=== PATIENT | male | born 1965 | race Caucasian/White ===

== ENCOUNTER 2016-09-25 11:43 | Inpatient (IN) | payer OTHER ==
[2016-09-25 11:59] VITALS: BMI 23.5
--- NOTE | 2016-09-25 16:33 | HP ---
COWS - Scale Resting Pulse: 0= [place] 80 or Below Sweatin= Chills/Flushing Restless Observation: 1= Difficult to Sit Still Pupil Size: 0= Normal to Room Light Bone or Joint Aches: 2= Severe Diffuse Aches Runny Nose/ Eye Tearin= Runny Nose/Eyes GI Upset > 30mins: 2= Nausea/Diarrhea Tremor Observation: 2= Slight Tremor Visible Yawning Observation: 2= >3x During Session Anxiety or Irritability: 2=Irritable/Anxious Goose Flesh Skin: 0=Smooth Skin COWS Score: [address] [facility] Chief Complaint: withdrawal sx Allergies/Adverse Reactions: Allergies Allergy/AdvReac Type Severity Reaction Status Date / Time No Known Allergies Allergy Verified 09/25/16 17:26 History of Present Illness: 51 years old male with long history of opiate cocaine marijuana nicotine dependence, has history of hypertension positive ppd weight loss denies mental illness is admitted to detox Exam Limitations: No Limitations - Ebola screening Have you traveled outside of the country in the last 21 days: No Have you had contact with anyone from an Ebola affected area: No Have you been sick,other than usual withdrawal symptoms: No Do you have a fever: No - Review of Systems Constitutional: Chills, Loss of Appetite, Changes in sleep, Unintentional Wgt. Loss, Unexplained wgt Loss EENT: reports: No Symptoms Reported Respiratory: reports: No Symptoms reported Cardiac: reports: No Symptoms Reported GI: reports: Diarrhea, Nausea, Poor Appetite, Poor Fluid Intake, Indigestion, Abdominal cramping : reports: No Symptoms Reported Musculoskeletal: reports: Back Pain, Joint Pain, Muscle Pain, Muscle Weakness ( general body weakness), Neck Pain Integumentary: reports: Change in Color (both inner elbows iv opiate) Neuro: reports: Tremors Endocrine: reports: No Symptoms Reported Hematology: reports: No Symptoms Reported Psychiatric: reports: Judgement Intact, Mood/Affect Appropiate, Orientated x3 Other Systems: Reviewed and Negative Patient History - Patient Medical History Hx Anemia: No Hx Asthma: Yes Hx Chronic Obstructive Pulmonary Disease (COPD): No Hx Cancer: No Hx Cardiac Disorders: No Hx Congestive Heart Failure: No Hx Hypertension: Yes Hx Hypercholesterolemia: No Hx Pacemaker: No HX Cerebrovascular Accident: No Hx Seizures: No Hx Dementia: No Hx Diabetes: No Hx Gastrointestinal Disorders: No Hx Liver Disease: No Hx Genitourinary Disorders: No Hx Sexually Transmitted Disorders: No Hx Renal Disease (ESRD): No Hx Thyroid Disease: No Hx Human Immunodeficiency Virus (HIV): No (negative) Hx Hepatitis C: Yes Hx Depression: No Hx Suicide Attempt: No (denies) Hx Bipolar Disorder: No Hx Schizophrenia: No - Patient Surgical History Past Surgical History: No Hx Neurologic Surgery: No Hx Cataract Extraction: No Hx Cardiac Surgery: No Hx Lung Surgery: No Hx Breast Surgery: No Hx Breast Biopsy: No Hx Abdominal Surgery: No Hx Appendectomy: No Hx Cholecystectomy: No Hx Genitourinary Surgery: No Hx Orthopedic Surgery: No - PPD History Previous Implant?: Yes Documented Results: Positive w/o proof Implanted On Prior R Admission?: No PPD to be Administered?: No - Smoking Cessation Smoking history: Current every day smoker Have you smoked in the past 12 months: Yes Aproximately how many cigarettes per day: 20 Hx Chewing Tobacco Use: No Initiated information on smoking cessation: Yes 'Breaking Loose' booklet given: 09/25/16 - Substance & Tx. History Hx Alcohol Use: No Hx Substance Use: Yes Substance Use Type: Cocaine, Heroin, Marijuana Hx Substance Use Treatment: Yes - Substances Abused Heroin Route: Injection Frequency: Daily (14) Amount used: 14 bags Age of first use: 19 Date of Last Use: 09/24/16 Cocaine Route: Injection Frequency: Daily Amount used: 18 bags Age of first use: 19 Date of Last Use: 09/24/16 Family Disease History - Family Disease History Family Disease History: Diabetes: Mother, Heart Disease: Father Admission Physical Exam S - Vital Signs Vital Signs: Vital Signs - 24 hr 09/25/16 11:57 Temperature 97.3 F L Pulse Rate 53 L Respiratory 18 Rate Blood Pressure 125/83 - Physical General Appearance: Yes: Appropriately Dressed, Mild Distress, Thin, Tremorous, Irritable, Sweating, Anxious HEENTM: Yes: Hearing grossly Normal, Normal ENT Inspection, Normocephalic, Normal Voice Respiratory: Yes: Chest Non-Tender, Lungs Clear, Normal Breath Sounds, No Respiratory Distress, No Accessory Muscle Use Neck: Yes: Supple, Trachea in good position Breast: Yes: Breasts Symetrical Cardiology: Yes: Regular Rhythm, S1, S2, Bradycardia Abdominal: Yes: Non Tender, Soft, Increased Bowel Sounds Genitourinary: Yes: Within Normal Limits Back: Yes: Normal Inspection Musculoskeletal: Yes: full range of Motion, Gait Steady, Back pain, Muscle Pain , Muscle weakness (general body weakness) Extremities: Yes: Normal Range of Motion, Non-Tender, Tremors Neurological: Yes: Fully Oriented, Alert, Motor Strength 5/5, Normal Mood/Affect , Normal Response Integumentary: Yes: Warm, Track Daniel Lymphatic: Yes: Within Normal Limits - Diagnostic (1) Nicotine dependence Current Visit: Yes Status: Acute Qualifiers: Nicotine product type: cigarettes Substance use status: in withdrawal Qualified Code(s): F17.213 - Nicotine dependence, cigarettes, with withdrawal (2) Essential hypertension Current Visit: Yes Status: Resolved Comment: by history (3) Hepatitis C Current Visit: Yes Status: Chronic Qualifiers: Viral hepatitis chronicity: chronic Hepatic coma status: without hepatic coma Qualified Code(s): B18.2 - Chronic viral hepatitis C Comment: scheduled to treat (4) GERD (gastroesophageal reflux disease) Current Visit: Yes Status: Chronic Qualifiers: Esophagitis presence: without esophagitis Qualified Code(s): K21.9 - Gastro-esophageal reflux disease without esophagitis (5) Positive PPD, treated Current Visit: Yes Status: Resolved Cleared for Admission S - Detox or Rehab [facility] Level of Care: Medically Managed Detox Regimen/Protocol: Methadone S Breath Alcohol Content Breath Alcohol Content: 0 Urine Drug Screen - Results Drug Screen Negative: No Urine Drug Screen Results: THC-Marijuana, AWAIS-Cocaine, OPI-Opiates, BZO- Benzodiazepines
[2016-09-25] MEDS ORDERED: MAG HYDROX/AL HYDROX/SIMETH 30 ML UNIT-DOSE CUP PO PRN (16:35)
[2016-09-25] MEDS ORDERED: P-EPHED 60MG/TRIPROLIDI 2.5MG TABLET PO PRN (16:35)
[2016-09-25] MEDS ORDERED: MAGNESIUM CITRATE 300 ML BOTTLE PO PRN (16:35)
[2016-09-25] MEDS ORDERED: ACETAMINOPHEN 325 MG TABLET (FP) PO PRN (16:35)
[2016-09-25] MEDS ORDERED: NICOTINE POLACRILEX 4 MG GUM BC PRN (16:35)
[2016-09-25] MEDS ORDERED: LOPERAMIDE HCL 2 MG CAPSULE PO PRN (16:35)
[2016-09-25] MEDS ORDERED: MAGNESIUM HYDROX 2400MG/30ML ORAL SUSPENSION 30 ML CUP PO PRN (16:35)
[2016-09-25] MEDS ORDERED: MENTHOL/PHENOL 1 EACH UD MM PRN (16:35)
[2016-09-25] MEDS ORDERED: guaiFENesin/D-METHORPHAN HB 10 ML UNIT-DOSE CUPS PO PRN (16:35)
[2016-09-25] MEDS ORDERED: METHADONE HCL 10 MG TABLET (FOR DETOX USE ONLY) PO ONE ×2 (18:30→23:00)
[2016-09-25] MEDS: diazePAM 5 MG TABLET PO PRN (19:11)
[2016-09-25] MEDS: RANITIDINE HCL 150 MG TABLET (FP) PO SCH (22:16)
[2016-09-25] MEDS: THIAMINE HCL 100 MG TABLET (FP) PO SCH (22:16)
[2016-09-25 23:06] LABS: URINE APPEARANCE CLEAR; URINE BILIRUBIN NEGATIVE (NEGATIVE); URINE BLOOD NEGATIVE (NEGATIVE); URINE COLOR LTYELLOW; URINE GLUCOSE (UA) NEGATIVE (NEGATIVE); URINE KETONE NEGATIVE (NEGATIVE); URINE LEUK ESTERASE NEGATIVE (NEGATIVE); URINE NITRITE NEGATIVE (NEGATIVE); URINE PROTEIN NEGATIVE (NEGATIVE); URINE UROBILINOGEN NEGATIVE E.U./dl (0.2-1.0)
[2016-09-26] MEDS ORDERED: METHADONE HCL 10 MG TABLET (FOR DETOX USE ONLY) PO ONE (10:00)
--- NOTE | 2016-09-26 10:09 | EKG ---
Test Reason : Blood Pressure : / mmHG Vent. Rate : 056 BPM Atrial Rate : 056 BPM P-R Int : 146 ms QRS Dur : 092 ms QT Int : 444 ms P-R-T Axes : 059 054 063 degrees QTc Int : 428 ms SINUS BRADYCARDIA NON-SPECIFIC INTRA-VENTRICULAR CONDUCTION DELAY POOR R WAVE PROGRESSION NO PREVIOUS ECGS AVAILABLE Confirmed by ESTEPHANIA ADORNO MD ([id number]) on 09/26/2016 10:09:22 AM Referred By: Confirmed By:ESTEPHANIA ADORNO MD
[2016-09-26 10:17] LABS: MCH 22.8 pg (25.7-33.7); MCHC 31.2 g/dl (32.0-35.9); MEAN CELL VOLUME 72.9 fl (80-96); MEAN PLT VOLUME 8.8 fl (7.5-11.1); PLATELET COUNT 209 K/MM3 (134-434); RDW 16.2 % (11.9-15.9); WHITE BLOOD COUNT 8.4 K/mm3 (4.0-10.0)
[2016-09-26] MEDS: PRENATAL VITAMINS W/ FOLIC ACID TABLET (FP) PO SCH (10:34)
[2016-09-26] MEDS: NICOTINE 21 MG/24 HOURS TOPICAL PATCH TD SCH (10:34)
[2016-09-26] MEDS: RANITIDINE HCL 150 MG TABLET (FP) PO SCH ×2 (10:34→22:12)
[2016-09-26 11:30] LABS: ALBUMIN 3.3 g/dl (3.4-5.0); ALK PHOS 60 U/L (45-117); ANION GAP 9 (8-16); BILIRUBIN,TOTAL 0.4 mg/dL (0.2-1.0); CALCIUM 8.3 mg/dL (8.5-10.1); CO2 27 mmol/L (21-32); COCKROFT - GAULT 106.31; CREATININE 0.8 mg/dL (0.7-1.3); GLUCOSE,RANDOM 116 mg/dL (74-106); SGOT/AST 29 U/L (15-37); SGPT/ALT 33 U/L (12-78); TOT PROT 7.1 g/dl (6.4-8.2)
[2016-09-26] MEDS: ALBUTEROL SO4 6.7 GM HFA INHALER IH PRN (12:20)
[2016-09-26] MEDS ORDERED: ONDANSETRON *ODT* 4 MG TABLET SL PRN (13:22)
--- NOTE | 2016-09-26 14:04 | PN ---
BHS COWS - Scale Resting Pulse: 0= [place] 80 or Below Sweatin= Chills/Flushing Restless Observation: 1= Difficult to Sit Still Pupil Size: 0= Normal to Room Light Bone or Joint Aches: 2= Severe Diffuse Aches Runny Nose/ Eye Tearin= Nasal Congestion GI Upset > 30mins: 2= Nausea/Diarrhea Tremor Observation of Outstretched Hands: 2= Slight Tremor Visible Yawning Observation: 1= 1-2x During Session Anxiety or Irritability: 2=Irritable/Anxious Goose Flesh Skin: 3=Piloerection COWS Score: 15 BHS Progress Note (SOAP) Subjective: Diarrhea, Tremors, Interrupted sleep, Body Aches, Sweating, Vomiting. Objective: PT. A & OX 2 (DISORIENTED ABOUT DAY/ DATE). PT. OBSERVED AMBULATING ON UNIT. 09/26/16 14:02 Vital Signs Temperature 99.1 F 09/26/16 10:17 Pulse Rate 62 09/26/16 10:17 Respiratory Rate 18 09/26/16 10:17 Blood Pressure 114/65 09/26/16 10:17 O2 Sat by Pulse Oximetry (%) Laboratory Last Values WBC 8.4 K/mm3 (4.0-10.0) 09/26/16 06:16 RBC 4.85 M/mm3 (4.00-5.60) 09/26/16 06:16 Hgb 11.0 GM/dL (11.7-16.9) L D 09/26/16 06:16 Hct 35.4 % (35.4-49) 09/26/16 06:16 MCV 72.9 fl (80-96) L 09/26/16 06:16 MCHC 31.2 g/dl (32.0-35.9) L 09/26/16 06:16 RDW 16.2 % (11.9-15.9) H 09/26/16 06:16 Plt Count 209 K/MM3 (134-434) 09/26/16 06:16 MPV 8.8 fl (7.5-11.1) 09/26/16 06:16 Sodium 139 mmol/L (136-145) 09/26/16 06:16 Potassium 3.6 mmol/L (3.5-5.1) 09/26/16 06:16 Chloride 103 mmol/L (98-107) 09/26/16 06:16 Carbon Dioxide 27 mmol/L (21-32) 09/26/16 06:16 Anion Gap 9 (8-16) 09/26/16 06:16 BUN 15 mg/dL (7-18) 09/26/16 06:16 Creatinine 0.8 mg/dL (0.7-1.3) 09/26/16 06:16 Creat Clearance w eGFR > 60 (>60) 09/26/16 06:16 Random Glucose 116 mg/dL (74-106) H 09/26/16 06:16 Calcium 8.3 mg/dL (8.5-10.1) L 09/26/16 06:16 Total Bilirubin 0.4 mg/dL (0.2-1.0) D 09/26/16 06:16 AST 29 U/L (15-37) D 09/26/16 06:16 ALT 33 U/L (12-78) D 09/26/16 06:16 Alkaline Phosphatase 60 U/L (45-117) D 09/26/16 06:16 Total Protein 7.1 g/dl (6.4-8.2) 09/26/16 06:16 Albumin 3.3 g/dl (3.4-5.0) L 09/26/16 06:16 Urine Color Ltyellow 09/25/16 21:30 Urine Appearance Clear 09/25/16 21:30 Urine pH 5.0 (5.0-8.0) 09/25/16 21:30 Ur Specific [place] 1.019 (1.001-1.035) 09/25/16 21:30 Urine Protein Negative (NEGATIVE) 09/25/16 21:30 Urine Glucose (UA) Negative (NEGATIVE) 09/25/16 21:30 Urine Ketones Negative (NEGATIVE) 09/25/16 21:30 Urine Blood Negative (NEGATIVE) 09/25/16 21:30 Urine Nitrite Negative (NEGATIVE) 09/25/16 21:30 Urine Bilirubin Negative (NEGATIVE) 09/25/16 21:30 Urine Urobilinogen Negative E.U./dl (0.2-1.0) 09/25/16 21:30 Ur Leukocyte Esterase Negative (NEGATIVE) 09/25/16 21:30 RPR Titer Nonreactive (NONREACTIVE) 09/26/16 06:16 LABS NOTED. Assessment: 09/26/16 14:03 WITHDRAWAL SYMPTOMS. Plan: CONTINUE DETOX. PRN ZOFRAN FOR VOMITING. PRN IMMODIUM FOR DIARRHEA. ADVISED PATIENT TO FOLLOW-UP WITH [facility] REHAB MEDICAL PROVIDER AFTER DISCHARGE FROM DETOX FOR GENERAL MEDICAL ASSESSMENT AND FOR ABNORMAL ADMISSION LAB VALUES.
[2016-09-26] MEDS: diazePAM 5 MG TABLET PO PRN ×2 (14:30→22:11)
[2016-09-26] MEDS: THIAMINE HCL 100 MG TABLET (FP) PO SCH (22:11)
[2016-09-26] MEDS: diphenhydrAMINE HCL 50 MG CAPSULE PO PRN (22:12)
[2016-09-27] MEDS ORDERED: METHADONE HCL 5 MG TABLET (FOR DETOX USE ONLY) PO ONE (10:00)
[2016-09-27] MEDS: PRENATAL VITAMINS W/ FOLIC ACID TABLET (FP) PO SCH (10:14)
[2016-09-27] MEDS: RANITIDINE HCL 150 MG TABLET (FP) PO SCH ×2 (10:14→22:05)
[2016-09-27] MEDS: NICOTINE 21 MG/24 HOURS TOPICAL PATCH TD SCH (10:15)
[2016-09-27] MEDS: ALBUTEROL SO4 2.5/IPRATROPIUM 0.5 INH SOL 3 ML VIAL.NEB. NEB SCH (12:50)
[2016-09-27] MEDS ORDERED: ALBUTEROL SO4 2.5/IPRATROPIUM 0.5 INH SOL 3 ML VIAL.NEB. NEB PRN (12:50)
--- NOTE | 2016-09-27 12:55 | PN ---
BHS COWS - Scale Resting Pulse: 0= [place] 80 or Below Sweatin=Flushed/Facial Moisture Restless Observation: 1= Difficult to Sit Still Pupil Size: 0= Normal to Room Light Bone or Joint Aches: 2= Severe Diffuse Aches Runny Nose/ Eye Tearin= Runny Nose/Eyes GI Upset > 30mins: 2= Nausea/Diarrhea Tremor Observation of Outstretched Hands: 2= Slight Tremor Visible Yawning Observation: 1= 1-2x During Session Anxiety or Irritability: 2=Irritable/Anxious Goose Flesh Skin: 0=Smooth Skin COWS Score: 14 BHS Progress Note (SOAP) Subjective: Anxiety,tremors,sweating,interrupted sleep,restless Objective: 09/27/16 12:53 Vital Signs - 8 hr 09/27/16 09/27/16 06:00 09:52 Temperature 97.9 F 98.1 F Pulse Rate 47 L 61 Respiratory 18 18 Rate Blood Pressure 124/72 121/76 Laboratory Tests 09/25/16 09/26/16 09/26/16 21:30 06:16 06:16 WBC 8.4 RBC 4.85 Hgb 11.0 L D Hct 35.4 MCV 72.9 L MCHC 31.2 L RDW 16.2 H Plt Count 209 MPV 8.8 Sodium 139 Potassium 3.6 Chloride 103 Carbon Dioxide 27 Anion Gap 9 BUN 15 Creatinine 0.8 Creat Clearance w eGFR > 60 Random Glucose 116 H Calcium 8.3 L Total Bilirubin 0.4 D AST 29 D ALT 33 D Alkaline Phosphatase 60 D Total Protein 7.1 Albumin 3.3 L Urine Color Ltyellow Urine Appearance Clear Urine pH 5.0 Ur Specific [place] 1.019 Urine Protein Negative Urine Glucose (UA) Negative Urine Ketones Negative Urine Blood Negative Urine Nitrite Negative Urine Bilirubin Negative Urine Urobilinogen Negative Ur Leukocyte Esterase Negative RPR Titer 09/26/16 06:16 WBC RBC Hgb Hct MCV MCHC RDW Plt Count MPV Sodium Potassium Chloride Carbon Dioxide Anion Gap BUN Creatinine Creat Clearance w eGFR Random Glucose Calcium Total Bilirubin AST ALT Alkaline Phosphatase Total Protein Albumin Urine Color Urine Appearance Urine pH Ur Specific [place] Urine Protein Urine Glucose (UA) Urine Ketones Urine Blood Urine Nitrite Urine Bilirubin Urine Urobilinogen Ur Leukocyte Esterase RPR Titer Nonreactive labs noted Assessment: 09/27/16 12:54 Withdrawal sx. Plan: Continue detox
[2016-09-27] MEDS: ALBUTEROL SO4 6.7 GM HFA INHALER IH PRN (13:03)
[2016-09-27] MEDS: diazePAM 5 MG TABLET PO PRN ×2 (15:22→22:04)
[2016-09-27] MEDS: THIAMINE HCL 100 MG TABLET (FP) PO SCH (22:05)
[2016-09-27] MEDS: diphenhydrAMINE HCL 50 MG CAPSULE PO PRN (22:08)
[2016-09-28] MEDS ORDERED: cloNIDine HCL 0.1 MG TABLET PO ONE (09:34)
[2016-09-28] MEDS ORDERED: METHADONE HCL 5 MG TABLET (FOR DETOX USE ONLY) PO ONE (10:00)
[2016-09-28] MEDS: PRENATAL VITAMINS W/ FOLIC ACID TABLET (FP) PO SCH (10:10)
[2016-09-28] MEDS: CYCLOBENZAPRINE HCL 10 MG TABLET (FP) PO PRN (10:11)
[2016-09-28] MEDS: RANITIDINE HCL 150 MG TABLET (FP) PO SCH ×2 (10:11→22:09)
[2016-09-28] MEDS: NICOTINE 21 MG/24 HOURS TOPICAL PATCH TD SCH (10:12)
--- NOTE | 2016-09-28 10:41 | PN ---
BHS Progress Note (SOAP) Subjective: interrupted sleep, sweats, shakes , bodyaces Objective: 09/28/16 10:39 Vital Signs Temperature 97.9 F 09/28/16 09:09 Pulse Rate 64 09/28/16 09:09 Respiratory Rate 18 09/28/16 09:09 Blood Pressure 122/77 09/28/16 09:09 O2 Sat by Pulse Oximetry (%) Laboratory Tests 09/25/16 09/26/16 09/26/16 21:30 06:16 06:16 WBC 8.4 RBC 4.85 Hgb 11.0 L D Hct 35.4 MCV 72.9 L MCHC 31.2 L RDW 16.2 H Plt Count 209 MPV 8.8 Sodium 139 Potassium 3.6 Chloride 103 Carbon Dioxide 27 Anion Gap 9 BUN 15 Creatinine 0.8 Creat Clearance w eGFR > 60 Random Glucose 116 H Calcium 8.3 L Total Bilirubin 0.4 D AST 29 D ALT 33 D Alkaline Phosphatase 60 D Total Protein 7.1 Albumin 3.3 L Urine Color Ltyellow Urine Appearance Clear Urine pH 5.0 Ur Specific [place] 1.019 Urine Protein Negative Urine Glucose (UA) Negative Urine Ketones Negative Urine Blood Negative Urine Nitrite Negative Urine Bilirubin Negative Urine Urobilinogen Negative Ur Leukocyte Esterase Negative RPR Titer 09/26/16 06:16 WBC RBC Hgb Hct MCV MCHC RDW Plt Count MPV Sodium Potassium Chloride Carbon Dioxide Anion Gap BUN Creatinine Creat Clearance w eGFR Random Glucose Calcium Total Bilirubin AST ALT Alkaline Phosphatase Total Protein Albumin Urine Color Urine Appearance Urine pH Ur Specific [place] Urine Protein Urine Glucose (UA) Urine Ketones Urine Blood Urine Nitrite Urine Bilirubin Urine Urobilinogen Ur Leukocyte Esterase RPR Titer Nonreactive pt aox3 ambulating irritable Assessment: 09/28/16 10:40 withdrawal sx's Plan: cont. detox increase fluids clonidine 0.1mg flexeril prn
[2016-09-28] MEDS: ALBUTEROL SO4 2.5/IPRATROPIUM 0.5 INH SOL 3 ML VIAL.NEB. NEB SCH (13:46)
[2016-09-28] MEDS: THIAMINE HCL 100 MG TABLET (FP) PO SCH (22:09)
[2016-09-28] MEDS: diphenhydrAMINE HCL 50 MG CAPSULE PO PRN (22:09)
[2016-09-29] MEDS ORDERED: METHADONE HCL 10 MG TABLET (FOR DETOX USE ONLY) PO ONE (10:00)
[2016-09-29] MEDS: PRENATAL VITAMINS W/ FOLIC ACID TABLET (FP) PO SCH (10:12)
[2016-09-29] MEDS: NICOTINE 21 MG/24 HOURS TOPICAL PATCH TD SCH (10:12)
[2016-09-29] MEDS: RANITIDINE HCL 150 MG TABLET (FP) PO SCH ×2 (10:12→23:37)
--- NOTE | 2016-09-29 10:30 | PN ---
BHS Progress Note (SOAP) Subjective: chills sweats Objective: 09/29/16 10:29 Vital Signs Temperature 97.7 F 09/29/16 06:51 Pulse Rate 56 L 09/29/16 06:51 Respiratory Rate 18 09/29/16 06:51 Blood Pressure 100/53 09/29/16 06:51 O2 Sat by Pulse Oximetry (%) awake/alert ambulating no acute distress Assessment: 09/29/16 10:29 withdrawal sx Plan: continue detox increase fluids d/c in am
[2016-09-29] MEDS: ALBUTEROL SO4 2.5/IPRATROPIUM 0.5 INH SOL 3 ML VIAL.NEB. NEB SCH ×3 (10:45→23:38)
[2016-09-29] MEDS: hydrOXYzine PAMOATE 50 MG CAPSULE (FP) PO PRN ×2 (14:02→18:52)
[2016-09-29] MEDS: CYCLOBENZAPRINE HCL 10 MG TABLET (FP) PO PRN (18:52)
[2016-09-29] MEDS: THIAMINE HCL 100 MG TABLET (FP) PO SCH (23:37)
[2016-09-30] MEDS ORDERED: METHADONE HCL 5 MG TABLET (FOR DETOX USE ONLY) PO ONE (06:00)
--- NOTE | 2016-09-30 08:32 | DS ---
[facility] Detox Discharge Summary Admission Date: 09/25/16 Discharge Date: 09/30/16 - History Present History: Alcohol Dependence, Cocaine Dependence, Opioid Dependence - Physical Exam Results Vital Signs: Vital Signs Temperature 97.6 F 09/30/16 06:45 Pulse Rate 59 L 09/30/16 06:45 Respiratory Rate 16 09/30/16 06:45 Blood Pressure 117/74 09/30/16 06:45 O2 Sat by Pulse Oximetry (%) - Treatment Hospital Course: Detox Protocol Followed, Detoxed Safely, Responded well, Discharged Condition Good, Rehab Referral Accepted - Medication Discharge Medications: Ambulatory Orders Albuterol Sulfate Inhaler - [Ventolin Hfa Inhaler -] 1 - 2 inh PO PRN 11/20/15 Trazodone HCl [Desyrel -] 50 mg PO HS 11/20/15 - Diagnosis (1) Nicotine dependence Current Visit: Yes Status: Chronic Qualifiers: Nicotine product type: cigarettes Substance use status: uncomplicated Qualified Code(s): F17.210 - Nicotine dependence, cigarettes, uncomplicated (2) GERD (gastroesophageal reflux disease) Current Visit: Yes Status: Chronic Qualifiers: Esophagitis presence: without esophagitis Qualified Code(s): K21.9 - Gastro-esophageal reflux disease without esophagitis (3) Hepatitis C Current Visit: Yes Status: Chronic Qualifiers: Viral hepatitis chronicity: chronic Hepatic coma status: without hepatic coma Qualified Code(s): B18.2 - Chronic viral hepatitis C (4) Essential hypertension Current Visit: Yes Status: Chronic (5) Positive PPD, treated Current Visit: Yes Status: Resolved (6) Abrasion of finger of right hand Current Visit: No Status: Resolved Qualifiers: Encounter type: initial encounter Qualified Code(s): S60.419A - Abrasion of unspecified finger, initial encounter (7) Alcohol dependence with withdrawal Current Visit: Yes Status: Chronic Qualifiers: Complication of substance-induced condition: uncomplicated Qualified Code(s): F10.230 - Alcohol dependence with withdrawal, uncomplicated (8) Cocaine dependence Current Visit: Yes Status: Chronic Qualifiers: Substance use status: uncomplicated Qualified Code(s): F14.20 - Cocaine dependence, uncomplicated (9) Depression Current Visit: No Status: Acute (10) Opioid dependence with withdrawal Current Visit: Yes Status: Chronic (11) Syncope Current Visit: No Status: Resolved (12) Drug-induced mood disorder Current Visit: No Status: Suspected - AMA Did Patient Leave Against Medical Advice: No
[2016-09-30 10:36] VITALS: BP 117/57; PULSE 66; TEMP 97.7
[2016-09-30] MEDS: PRENATAL VITAMINS W/ FOLIC ACID TABLET (FP) PO SCH (10:44)
[2016-09-30] MEDS: NICOTINE 21 MG/24 HOURS TOPICAL PATCH TD SCH (10:44)
[2016-09-30] MEDS: RANITIDINE HCL 150 MG TABLET (FP) PO SCH (10:44)
[2016-09-30] MEDS: ALBUTEROL SO4 2.5/IPRATROPIUM 0.5 INH SOL 3 ML VIAL.NEB. NEB SCH (10:45)
== END 2016-09-30 11:58 | disposition other institution (70) | DRG 773 ==
LOC: YASAS 11:43 → Y6N 18:12
PROVIDERS: ADMIT Internal Medicine; ATTEND Internal Medicine
PROC: HZ2ZZZZ Detoxification Services for Substance Abuse Treatment (ICD-10-PCS; principal; 2016-09-25)
DX: F11.23 Opioid dependence with withdrawal (principal); F14.20 Cocaine dependence, uncomplicated; F17.210 Nicotine dependence, cigarettes, uncomplicated; F19.24 Other psychoactive substance dependence with psychoactive substance-induced mood disorder; F32.9 Major depressive disorder, single episode, unspecified; J45.909 Unspecified asthma, uncomplicated; K21.9 Gastro-esophageal reflux disease without esophagitis; B18.2 Chronic viral hepatitis C; I10 Essential (primary) hypertension; R00.1 Bradycardia, unspecified; Z86.79 Personal history of other diseases of the circulatory system
CPT/HCPCS: 36415; 71020-TC; 80053; 81003; 85027; 86593; 93005; 93010; 94640

== ENCOUNTER 2016-09-30 12:06 | Inpatient (IN) | payer OTHER ==
--- NOTE | 2016-09-30 13:33 | HP ---
Psychiatrist Admission - Data Date of interview: 09/30/16 Admission source: [address] [place] [address] detox Identifying data: This is the first admission to [address] [place] [address] inpatient rehabilitation for this 51 years old H male,single unemployed,undomiciled, supported with Food stamps. Medical History: GERD,HTN,Hep C ,Ba. Psychiatric History: Patient reports feeling depressed,anxious with sleeping disturbances at times for a few years.No psychiatric follow up,no psychiatric hospitalizations reported.Patient is obtaining Trazodone from local ER at [facility]. Physical/Sexual Abuse/Trauma History: denies Allergies/Adverse Reactions: Allergies Allergy/AdvReac Type Severity Reaction Status Date / Time No Known Allergies Allergy Verified 09/25/16 17:26 Date of last physical exam: 09/25/16 Concur with the findings of this exam: Yes - Substance Abuse/Tx History Hx Alcohol Use: Yes (reports drinking since 21 yo,a few beer daily) Hx Substance Use: Yes (heroin and cocoaine since 19 yo,14 bags of heroin daily, cocaine $100 daily) Substance Use Type: Alcohol, Cocaine, Heroin Hx Substance Use Treatment: Yes (this is his first inpatient rehabilitation ) - Admission Criteria Previous failed treatment: Yes Poor recovery environment: Yes Comorbidities: Yes Lacks judgement: Yes Mental Status Exam - Mental Status Exam Alert and Oriented to: Time, Place, Person Cognitive Function: Grossly Intact Patient Appearance: Well Groomed Mood: Sad Affect: Mood Congruent, Labile Patient Behavior: Cooperative Speech Pattern: Clear Voice Loudness: Normal Thought Process: Goal Oriented Thought Disorder: Not Present Hallucinations: Denies Suicidal Ideation: Denies Homicidal Ideation: Denies Insight/Judgement: Fair Sleep: Fair Appetite: Fair Muscle strength/Tone: Normal Gait/Station: Normal Psychiatric Findings - Problem List (L[place] 1, 2,3) (1) Alcohol dependence with withdrawal Current Visit: Yes Status: Chronic (2) Cocaine dependence Current Visit: Yes Status: Chronic Qualifiers: (3) Essential hypertension Current Visit: Yes Status: Chronic Comment: by history (4) GERD (gastroesophageal reflux disease) Current Visit: Yes Status: Chronic Qualifiers: (5) Hepatitis C Current Visit: Yes Status: Chronic Qualifiers: Comment: scheduled to treat (6) Nicotine dependence Current Visit: Yes Status: Chronic Qualifiers: (7) Opioid dependence with withdrawal Current Visit: Yes Status: Chronic (8) Substance induced mood disorder Current Visit: Yes Status: Chronic - Initial Treatment Plan Initial Treatment Plan: Restart Trazodone 50 mg po hs.Will monitir progress.
[2016-09-30] MEDS ORDERED: MAG HYDROX/AL HYDROX/SIMETH 30 ML UNIT-DOSE CUP PO PRN (14:24)
[2016-09-30] MEDS ORDERED: MAGNESIUM CITRATE 300 ML BOTTLE PO PRN (14:24)
[2016-09-30] MEDS ORDERED: P-EPHED 60MG/TRIPROLIDI 2.5MG TABLET PO PRN (14:24)
[2016-09-30] MEDS ORDERED: MAGNESIUM HYDROX 2400MG/30ML ORAL SUSPENSION 30 ML CUP PO PRN (14:24)
[2016-09-30] MEDS ORDERED: MENTHOL/PHENOL 1 EACH UD MM PRN (14:24)
[2016-09-30] MEDS ORDERED: guaiFENesin/D-METHORPHAN HB 10 ML UNIT-DOSE CUPS PO PRN (14:24)
[2016-09-30] MEDS ORDERED: LOPERAMIDE HCL 2 MG CAPSULE PO PRN (14:24)
[2016-09-30] MEDS: traZODone HCL 50 MG TABLET (FP) PO SCH (21:13)
[2016-09-30] MEDS: cloNIDine HCL 0.1 MG TABLET PO SCH (21:13)
[2016-09-30] MEDS: THIAMINE HCL 100 MG TABLET (FP) PO SCH (21:13)
[2016-10-01] MEDS: cloNIDine HCL 0.1 MG TABLET PO SCH ×2 (10:00→21:12)
[2016-10-01] MEDS: PRENATAL VITAMINS W/ FOLIC ACID TABLET (FP) PO SCH (10:00)
[2016-10-01] MEDS: ACETAMINOPHEN 325 MG TABLET (FP) PO PRN ×2 (10:00→17:30)
[2016-10-01] MEDS: CYCLOBENZAPRINE HCL 10 MG TABLET (FP) PO PRN (10:00)
[2016-10-01] MEDS: IBUPROFEN 400 MG TABLET (FP) PO PRN ×2 (12:24→21:14)
[2016-10-01] MEDS: traZODone HCL 50 MG TABLET (FP) PO SCH (21:12)
[2016-10-01] MEDS: THIAMINE HCL 100 MG TABLET (FP) PO SCH (21:12)
[2016-10-02] MEDS: cloNIDine HCL 0.1 MG TABLET PO SCH ×2 (09:46→21:11)
[2016-10-02] MEDS: IBUPROFEN 400 MG TABLET (FP) PO PRN ×2 (09:46→15:36)
[2016-10-02] MEDS: CYCLOBENZAPRINE HCL 10 MG TABLET (FP) PO PRN ×3 (09:46→21:11)
[2016-10-02] MEDS: PRENATAL VITAMINS W/ FOLIC ACID TABLET (FP) PO SCH (09:46)
[2016-10-02] MEDS: THIAMINE HCL 100 MG TABLET (FP) PO SCH (21:11)
[2016-10-02] MEDS: ACETAMINOPHEN 325 MG TABLET (FP) PO PRN (21:11)
[2016-10-02] MEDS: traZODone HCL 50 MG TABLET (FP) PO SCH (21:11)
[2016-10-03] MEDS: CYCLOBENZAPRINE HCL 10 MG TABLET (FP) PO PRN ×2 (07:43→15:08)
[2016-10-03] MEDS: PRENATAL VITAMINS W/ FOLIC ACID TABLET (FP) PO SCH (09:51)
[2016-10-03] MEDS: IBUPROFEN 400 MG TABLET (FP) PO PRN ×2 (09:51→19:03)
[2016-10-03] MEDS: cloNIDine HCL 0.1 MG TABLET PO SCH ×2 (09:52→21:09)
[2016-10-03] MEDS: ACETAMINOPHEN 325 MG TABLET (FP) PO PRN (15:07)
[2016-10-03] MEDS: THIAMINE HCL 100 MG TABLET (FP) PO SCH (21:09)
[2016-10-03] MEDS: traZODone HCL 50 MG TABLET (FP) PO SCH (21:09)
[2016-10-03] MEDS: diphenhydrAMINE HCL 50 MG CAPSULE PO PRN (21:10)
[2016-10-04] MEDS: PRENATAL VITAMINS W/ FOLIC ACID TABLET (FP) PO SCH (09:51)
[2016-10-04] MEDS: CYCLOBENZAPRINE HCL 10 MG TABLET (FP) PO PRN ×2 (09:51→16:44)
[2016-10-04] MEDS: IBUPROFEN 400 MG TABLET (FP) PO PRN ×2 (09:52→16:45)
[2016-10-04] MEDS: cloNIDine HCL 0.1 MG TABLET PO SCH ×2 (10:50→21:07)
[2016-10-04] MEDS: THIAMINE HCL 100 MG TABLET (FP) PO SCH (21:07)
[2016-10-04] MEDS: traZODone HCL 50 MG TABLET (FP) PO SCH (21:07)
[2016-10-04] MEDS: ACETAMINOPHEN 325 MG TABLET (FP) PO PRN (21:08)
[2016-10-04] MEDS: diphenhydrAMINE HCL 50 MG CAPSULE PO PRN (21:08)
[2016-10-05] MEDS: PRENATAL VITAMINS W/ FOLIC ACID TABLET (FP) PO SCH (10:04)
[2016-10-05] MEDS: cloNIDine HCL 0.1 MG TABLET PO SCH ×2 (10:04→21:14)
[2016-10-05] MEDS: ACETAMINOPHEN 325 MG TABLET (FP) PO PRN ×2 (10:06→21:14)
--- NOTE | 2016-10-05 17:22 | HP ---
[facility] Rehab Assess/Revision - Admission History Admitted to Rehab from: [facility] Date of Admission to Rehab: 09/30/16 - Vital signs Vital Signs: Vital Signs Period Temp Pulse Resp BP Sys/Powers Pulse Ox Last 24 Hr 97.9 F 59-75 18-18 105-115/64-70 - Findings Detox History & Physical reviewed: Yes Concur with findings: Yes Comments/Additional Findings: TRANSFERRED FROM DETOX TO REHAB ADMISSION PER PROTOCOL
[2016-10-05] MEDS ORDERED: ALBUTEROL SO4 6.7 GM HFA INHALER IH PRN (17:23)
[2016-10-05] MEDS ORDERED: ALBUTEROL SO4 2.5/IPRATROPIUM 0.5 INH SOL 3 ML VIAL.NEB. NEB PRN (17:24)
[2016-10-05] MEDS: traZODone HCL 50 MG TABLET (FP) PO SCH (21:14)
[2016-10-05] MEDS: THIAMINE HCL 100 MG TABLET (FP) PO SCH (21:14)
[2016-10-05] MEDS: CYCLOBENZAPRINE HCL 10 MG TABLET (FP) PO PRN (21:14)
[2016-10-06 06:34] VITALS: TEMP 98.2
[2016-10-06] MEDS: ACETAMINOPHEN 325 MG TABLET (FP) PO PRN (06:43)
[2016-10-06] MEDS: cloNIDine HCL 0.1 MG TABLET PO SCH ×2 (10:04→21:17)
[2016-10-06] MEDS: PRENATAL VITAMINS W/ FOLIC ACID TABLET (FP) PO SCH (10:04)
[2016-10-06] MEDS: hydrOXYzine PAMOATE 50 MG CAPSULE (FP) PO PRN ×2 (14:32→21:17)
[2016-10-06] MEDS: IBUPROFEN 400 MG TABLET (FP) PO PRN (17:30)
[2016-10-06] MEDS: THIAMINE HCL 100 MG TABLET (FP) PO SCH (21:17)
[2016-10-06] MEDS: traZODone HCL 50 MG TABLET (FP) PO SCH (21:17)
[2016-10-07] MEDS: diphenhydrAMINE HCL 50 MG CAPSULE PO PRN (01:55)
[2016-10-07 06:44] VITALS: BP 120/67; PULSE 63
--- NOTE | 2016-10-07 10:15 | PN ---
Psychiatric Progress Note Vital Signs: Vital Signs Period Temp Pulse Resp BP Sys/Powers Pulse Ox Last 24 Hr 98.2 F 63-64 18-18 114-120/67-74 Date of Session: 10/07/16 Chief Complaint:: dsicharge visit HPI: Patient has addressed alcohol, cocaine, opioid dependence comorbid Substance induced mood disorder. ROS: GERD,HTN,Hep C ,Ba medically managed Current Medications: Active Medications Generic Name Dose Route Start Last Admin Trade Name Freq PRN Reason Stop Dose Admin Acetaminophen 650 mg 09/30/16 14:24 10/06/16 06:43 Tylenol - PO 650 mg Q4H PRN Administration FEVER OR PAIN Al Hydroxide/Mg Hydroxide 30 ml 09/30/16 14:24 Mylanta Oral Suspension - PO Q6H PRN DYSPEPSIA Albuterol Sulfate 2 puff 10/05/16 17:23 10/06/16 21:18 Ventolin Hfa Inhaler - IH 2 puff Q4H PRN Administration SHORT OF BREATH/WHEEZING Albuterol/Ipratropium 1 amp 10/05/16 17:24 Duoneb - NEB Q6H PRN SHORTNESS OF BREATH Clonidine 0.1 mg 09/30/16 22:00 10/06/16 21:17 Catapres - PO 0.1 mg BID OSIEL Administration Cyclobenzaprine HCl 10 mg 09/30/16 14:24 10/05/16 21:14 Flexeril - PO 10 mg TID PRN Administration MUSCLE SPASMS Diphenhydramine HCl 50 mg 09/30/16 14:24 10/07/16 01:55 Benadryl - PO 50 mg HSMR1 PRN Administration FOR ITCHING Eucalyptus/Menthol/Phenol/Sorbitol 1 each 09/30/16 14:24 Cepastat Lozenge - MM Q4H PRN SORE THROAT Guaifenesin 10 ml 09/30/16 14:24 Robitussin Dm - PO Q6H PRN COUGH Hydroxyzine Pamoate 50 mg 10/06/16 13:19 10/06/16 21:17 Vistaril - PO 50 mg Q6H PRN Administration FOR ITCHING Ibuprofen 400 mg 09/30/16 14:24 10/06/16 17:30 Motrin - PO 400 mg Q6H PRN Administration PAIN Loperamide HCl 4 mg 09/30/16 14:24 Imodium - PO Q6H PRN DIARRHEA Magnesium Hydroxide 30 ml 09/30/16 14:24 Milk Of Magnesia - PO DAILY PRN CONSTIPATION Multivit/Folic Acid/Iron 1 tab 10/01/16 10:00 10/06/16 10:04 Vitamins (Sjr) - PO 1 tab DAILY OSIEL Administration Pseudoephedrine/Triprolidine 1 combo 09/30/16 14:24 Actifed - PO TID PRN NASAL CONGESTION Thiamine HCl 100 mg 09/30/16 22:00 10/06/16 21:17 Vitamin B1 - PO 100 mg HS OSIEL Administration Trazodone HCl 50 mg 09/30/16 22:00 10/06/16 21:17 Desyrel - PO 50 mg HS OSIEL Administration Current Side Effect: No Lab tests ordered: No Lab tests reviewed: Yes Provider note:: Patient has completed 7 days treatment and met short vterm goals , will contineu to address his issues at [facility] program. Patient was encouraged to utilize all supports available to prevent relapse, patient reported he does not want to continue Trazodone and does not need any scripts, patient is stable for discharge today. Total face to face time:: 30 Mental Status Exam - Mental Status Exam Alert and Oriented to: Time, Place, Person Patient Appearance: Well Groomed Mood: Hopeful Affect: Appropriate, Mood Congruent Patient Behavior: Appropriate, Cooperative Speech Pattern: Clear, Appropriate Voice Loudness: Normal Thought Process: Goal Oriented Thought Disorder: Not Present Hallucinations: None, Denies Suicidal Ideation: None, Denies Homicidal Ideation: None Insight/Judgement: Good Sleep: Well Appetite: Good Muscle strength/Tone: Normal Gait/Station: Normal Psychiatric Treatment Plan - Problem List (1) Cocaine dependence Current Visit: Yes Qualifiers: (2) Essential hypertension Current Visit: Yes Comment: by history (3) GERD (gastroesophageal reflux disease) Current Visit: Yes Qualifiers: (4) Hepatitis C Current Visit: Yes Qualifiers: Comment: scheduled to treat (5) Nicotine dependence Current Visit: Yes Qualifiers: (6) Substance induced mood disorder Current Visit: Yes (7) Opioid dependence Current Visit: Yes
[2016-10-07] MEDS: PRENATAL VITAMINS W/ FOLIC ACID TABLET (FP) PO SCH (10:21)
[2016-10-07] MEDS: cloNIDine HCL 0.1 MG TABLET PO SCH (10:21)
== END 2016-10-07 10:30 | disposition home or self-care (01) | DRG 772 ==
LOC: YASAS 12:06 → Y5N 12:07
PROVIDERS: ADMIT Psychiatry & Neurology Psychiatry; ATTEND Psychiatry & Neurology Psychiatry
PROC: HZ42ZZZ Group Counseling for Substance Abuse Treatment, Cognitive-Behavioral (ICD-10-PCS; principal; 2016-09-30)
DX: F11.20 Opioid dependence, uncomplicated (principal); F10.20 Alcohol dependence, uncomplicated; F14.20 Cocaine dependence, uncomplicated; F17.210 Nicotine dependence, cigarettes, uncomplicated; F19.24 Other psychoactive substance dependence with psychoactive substance-induced mood disorder; K21.9 Gastro-esophageal reflux disease without esophagitis; I10 Essential (primary) hypertension; B18.2 Chronic viral hepatitis C; J45.909 Unspecified asthma, uncomplicated

== ENCOUNTER 2018-03-03 08:41 | Inpatient (IN) | payer OTHER ==
[2018-03-03 08:57] VITALS: BMI 21.2
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
[2018-03-03] MEDS ORDERED: LOPERAMIDE HCL 2 MG CAPSULE PO PRN (09:45)
[2018-03-03] MEDS ORDERED: METHADONE HCL 10 MG TABLET (FOR DETOX USE ONLY) PO ONE ×2 (09:45→23:00)
[2018-03-03] MEDS ORDERED: MAGNESIUM CITRATE 300 ML BOTTLE PO PRN (09:45)
[2018-03-03] MEDS ORDERED: NICOTINE POLACRILEX 2 MG GUM BUC PRN (09:45)
[2018-03-03] MEDS ORDERED: MAG HYDROX/AL HYDROX/SIMETH 30 ML UNIT-DOSE CUP PO PRN (09:45)
[2018-03-03] MEDS ORDERED: MAGNESIUM HYDROX 2400MG/30ML ORAL SUSPENSION 30 ML CUP PO PRN (09:45)
[2018-03-03] MEDS ORDERED: MENTHOL/PHENOL 1 EACH UD MM PRN (09:45)
[2018-03-03] MEDS ORDERED: guaiFENesin/D-METHORPHAN HB 10 ML UNIT-DOSE CUPS PO PRN (09:45)
[2018-03-03] MEDS ORDERED: P-EPHED 60MG/TRIPROLIDI 2.5MG TABLET PO PRN (09:45)
[2018-03-03] MEDS: cloNIDine HCL 0.1 MG TABLET PO SCH ×2 (10:09→22:05)
[2018-03-03] MEDS: diazePAM 5 MG TABLET PO PRN ×2 (10:09→15:33)
[2018-03-03] MEDS: NICOTINE 21 MG/24 HOURS TOPICAL PATCH TD SCH (10:09)
[2018-03-03] MEDS: PRENATAL VITAMINS W/ FOLIC ACID TABLET (FP) PO SCH (10:59)
--- NOTE | 2018-03-03 14:33 | EKG ---
Test Reason : Blood Pressure : / mmHG Vent. Rate : 062 BPM Atrial Rate : 062 BPM P-R Int : 144 ms QRS Dur : 110 ms QT Int : 430 ms P-R-T Axes : 075 077 063 degrees QTc Int : 436 ms NORMAL SINUS RHYTHM NORMAL ECG WHEN COMPARED WITH ECG OF 25-SEP-2016 18:06, NO SIGNIFICANT CHANGE WAS FOUND Confirmed by KEIKO DOWNEY MD ([id number]) on 03/03/2018 2:33:26 PM Referred By: Confirmed By:KEIKO DOWNEY MD
[2018-03-03 14:41] LABS: URINE APPEARANCE SLCLOUDY; URINE BILIRUBIN NEGATIVE (<2.0 mg/dL); URINE COLOR LTYELLOW; URINE GLUCOSE (UA) NEGATIVE (NEGATIVE); URINE KETONE NEGATIVE (NEGATIVE); URINE LEUK ESTERASE NEGATIVE (NEGATIVE); URINE NITRITE NEGATIVE (NEGATIVE); URINE PROTEIN NEGATIVE (NEGATIVE); URINE UROBILINOGEN NEGATIVE mg/dL (0.2-1.0)
[2018-03-03] MEDS: CYCLOBENZAPRINE HCL 10 MG TABLET (FP) PO PRN (16:32)
[2018-03-03] MEDS: hydrOXYzine PAMOATE 25 MG CAPSULE (FP) PO PRN (16:32)
[2018-03-03] MEDS ORDERED: hydrOXYzine PAMOATE 50 MG CAPSULE (FP) PO ONE (19:27)
[2018-03-03] MEDS ORDERED: PROMETHAZINE HCL 50 MG/1 ML AMP IM ONE (20:00)
[2018-03-03] MEDS ORDERED: PROMETHAZINE HCL 25 MG/1 ML VIAL IM ONE (20:00)
[2018-03-03] MEDS ORDERED: TRIMETHOBENZAMIDE HCL 200MG/2ML INJ IM PRN (20:34)
--- NOTE | 2018-03-03 21:22 | PN ---
S Progress Note Note: C/o continued vomiting. C/o opiate withdrawal symptoms. Vital Signs 03/03/18 17:59 Temperature 98.4 F Pulse Rate 65 Respiratory 18 Rate Blood Pressure 114/63 Abd soft, non-tender. Plan: Phenergan not immediately available, so Tigan ordered. Vistaril @ 1 am.
[2018-03-03] MEDS: THIAMINE HCL 100 MG TABLET (FP) PO SCH (22:05)
[2018-03-03] MEDS: MELATONIN 5 MG TABLETS PO PRN (22:06)
[2018-03-04] MEDS ORDERED: hydrOXYzine PAMOATE 50 MG CAPSULE (FP) PO ONE (01:00)
[2018-03-04 09:59] LABS: WHITE BLOOD COUNT 12.5 K/mm3 (4.0-10.0)
[2018-03-04] MEDS ORDERED: METHADONE HCL 10 MG TABLET (FOR DETOX USE ONLY) PO ONE (10:00)
[2018-03-04 10:02] LABS: HEMATOCRIT 36.2 % (35.4-49); MCH 21.4 pg (25.7-33.7); MCHC 30.5 g/dl (32.0-35.9); MEAN CELL VOLUME 70.2 fl (80-96); MEAN PLT VOLUME 7.7 fl (7.5-11.1); PLATELET COUNT 377 K/MM3 (134-434); RBC 5.15 M/mm3 (4.00-5.60); RDW 17.8 % (11.9-15.9)
[2018-03-04 10:16] LABS: ALBUMIN 3.1 g/dl (3.4-5.0); ALK PHOS 63 U/L (45-117); ANION GAP 10 MMOL/L (8-16); BILIRUBIN,TOTAL 0.3 mg/dL (0.2-1); BLOOD UREA NITROGEN 17 mg/dL (7-18); CHLORIDE 105 mmol/L (98-107); CO2 26 mmol/L (21-32); CREATININE 0.7 mg/dL (0.55-1.3); GLUCOSE,RANDOM 113 mg/dL (74-106); POTASSIUM 4.4 mmol/L (3.5-5.1); SGOT/AST 41 U/L (15-37); SGPT/ALT 42 U/L (13-61); SODIUM 142 mmol/L (136-145); TOT PROT 7.6 g/dl (6.4-8.2)
[2018-03-04] MEDS: cloNIDine HCL 0.1 MG TABLET PO SCH ×2 (10:27→22:04)
[2018-03-04] MEDS: PRENATAL VITAMINS W/ FOLIC ACID TABLET (FP) PO SCH (10:27)
[2018-03-04] MEDS: diazePAM 5 MG TABLET PO PRN ×4 (10:27→22:04)
[2018-03-04] MEDS: NICOTINE 21 MG/24 HOURS TOPICAL PATCH TD SCH (10:29)
[2018-03-04] MEDS: CYCLOBENZAPRINE HCL 10 MG TABLET (FP) PO PRN ×2 (10:30→22:05)
[2018-03-04] MEDS: ALBUTEROL SO4 8 GM HFA INHALER IH PRN (11:26)
[2018-03-04] MEDS ORDERED: PNEUMOCOCCAL 23 VACCINE 0.5 ML VIAL IM ONE (12:00)
[2018-03-04] MEDS ORDERED: PNEUMOC 13-VAL CONJ-DIP CRM/PF 0.5 ML DISP.SYRIN IM ONE (12:00)
[2018-03-04] MEDS ORDERED: FLU VACCINE QUAD 60 MCG/0.5 ML (MDV 18-19) IM ONE (12:00)
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
[2018-03-04] MEDS ORDERED: ALBUTEROL SO4 0.083% IH SOL 2.5 MG/3 ML VIAL.NEB. NEB PRN (13:20)
--- NOTE | 2018-03-04 13:40 | PN ---
BHS COWS - Scale Resting Pulse: 0= [place] 80 or Below Sweatin= Chills/Flushing Restless Observation: 3= Extraneous Movement Pupil Size: 0= Normal to Room Light Bone or Joint Aches: 2= Severe Diffuse Aches Runny Nose/ Eye Tearin= Runny Nose/Eyes GI Upset > 30mins: 3= Vomiting/Diarrhea Tremor Observation of Outstretched Hands: 2= Slight Tremor Visible Yawning Observation: 1= 1-2x During Session Anxiety or Irritability: 2=Irritable/Anxious Goose Flesh Skin: 0=Smooth Skin COWS Score: 16 BHS Progress Note (SOAP) Subjective: Sweating, tremor, chills Objective: 03/04/18 13:23 Last Vital Signs Temp Pulse Resp BP Pulse Ox 98.9 F 52 L 16 121/68 03/04/18 09:15 03/04/18 09:15 03/04/18 09:15 03/04/18 09:15 Laboratory Tests 03/03/18 03/04/18 03/04/18 12:00 07:00 07:00 WBC 12.5 H RBC 5.15 Hgb 11.0 L Hct 36.2 MCV 70.2 L MCH 21.4 L MCHC 30.5 L RDW 17.8 H Plt Count 377 D MPV 7.7 D Sodium 142 Potassium 4.4 Chloride 105 Carbon Dioxide 26 Anion Gap 10 BUN 17 Creatinine 0.7 Creat Clearance w eGFR > 60 Random Glucose 113 H Calcium 9.0 Total Bilirubin 0.3 AST 41 H ALT 42 Alkaline Phosphatase 63 Total Protein 7.6 Albumin 3.1 L Urine Color Ltyellow Urine Appearance Slcloudy Urine pH 6.0 Ur Specific [place] 1.020 Urine Protein Negative Urine Glucose (UA) Negative Urine Ketones Negative Urine Blood Negative Urine Nitrite Negative Urine Bilirubin Negative Urine Urobilinogen Negative Ur Leukocyte Esterase Negative RPR Titer 03/04/18 07:00 WBC RBC Hgb Hct MCV MCH MCHC RDW Plt Count MPV Sodium Potassium Chloride Carbon Dioxide Anion Gap BUN Creatinine Creat Clearance w eGFR Random Glucose Calcium Total Bilirubin AST ALT Alkaline Phosphatase Total Protein Albumin Urine Color Urine Appearance Urine pH Ur Specific [place] Urine Protein Urine Glucose (UA) Urine Ketones Urine Blood Urine Nitrite Urine Bilirubin Urine Urobilinogen Ur Leukocyte Esterase RPR Titer Nonreactive Labs reviewed: wbc 12.5 Assessment: 03/04/18 13:40 Withdrawal symptoms Noted with leukocytosis Plan: Continue detox Leukocytosis: asymptomatic, repeat CBC
[2018-03-04] MEDS: THIAMINE HCL 100 MG TABLET (FP) PO SCH (22:04)
[2018-03-04] MEDS: traZODone HCL 50 MG TABLET (FP) PO SCH (22:04)
[2018-03-05] MEDS ORDERED: METHADONE HCL 5 MG TABLET (FOR DETOX USE ONLY) PO ONE (10:00)
[2018-03-05] MEDS: PRENATAL VITAMINS W/ FOLIC ACID TABLET (FP) PO SCH (10:37)
[2018-03-05] MEDS: NICOTINE 21 MG/24 HOURS TOPICAL PATCH TD SCH (10:37)
[2018-03-05] MEDS: cloNIDine HCL 0.1 MG TABLET PO SCH ×2 (10:38→22:36)
[2018-03-05] MEDS: diazePAM 5 MG TABLET PO PRN ×2 (10:45→17:06)
--- NOTE | 2018-03-05 11:08 | PN ---
S COWS - Scale Resting Pulse: 0= [place] 80 or Below Sweatin= Chills/Flushing Restless Observation: 1= Difficult to Sit Still Pupil Size: 0= Normal to Room Light Bone or Joint Aches: 2= Severe Diffuse Aches Runny Nose/ Eye Tearin= Runny Nose/Eyes GI Upset > 30mins: 2= Nausea/Diarrhea Tremor Observation of Outstretched Hands: 2= Slight Tremor Visible Yawning Observation: 1= 1-2x During Session Anxiety or Irritability: 2=Irritable/Anxious Goose Flesh Skin: 3=Piloerection COWS Score: 16 S Progress Note (SOAP) Subjective: Malaise, abdominal pain, tremors and chills Objective: 03/05/18 11:08 Vital Signs - 8 hr 03/05/18 03/05/18 03:30 06:24 Temperature 97 F L Pulse Rate 59 L Respiratory 18 18 Rate Blood Pressure 106/58 L Laboratory Last Values WBC 12.5 K/mm3 (4.0-10.0) H 03/04/18 07:00 RBC 5.15 M/mm3 (4.00-5.60) 03/04/18 07:00 Hgb 11.0 GM/dL (11.7-16.9) L 03/04/18 07:00 Hct 36.2 % (35.4-49) 03/04/18 07:00 MCV 70.2 fl (80-96) L 03/04/18 07:00 MCH 21.4 pg (25.7-33.7) L 03/04/18 07:00 MCHC 30.5 g/dl (32.0-35.9) L 03/04/18 07:00 RDW 17.8 % (11.9-15.9) H 03/04/18 07:00 Plt Count 377 K/MM3 (134-434) D 03/04/18 07:00 MPV 7.7 fl (7.5-11.1) D 03/04/18 07:00 Sodium 142 mmol/L (136-145) 03/04/18 07:00 Potassium 4.4 mmol/L (3.5-5.1) 03/04/18 07:00 Chloride 105 mmol/L (98-107) 03/04/18 07:00 Carbon Dioxide 26 mmol/L (21-32) 03/04/18 07:00 Anion Gap 10 MMOL/L (8-16) 03/04/18 07:00 BUN 17 mg/dL (7-18) 03/04/18 07:00 Creatinine 0.7 mg/dL (0.55-1.3) 03/04/18 07:00 Creat Clearance w eGFR > 60 (>60) 03/04/18 07:00 Random Glucose 113 mg/dL (74-106) H 03/04/18 07:00 Calcium 9.0 mg/dL (8.5-10.1) 03/04/18 07:00 Total Bilirubin 0.3 mg/dL (0.2-1) 03/04/18 07:00 AST 41 U/L (15-37) H 03/04/18 07:00 ALT 42 U/L (13-61) 03/04/18 07:00 Alkaline Phosphatase 63 U/L (45-117) 03/04/18 07:00 Total Protein 7.6 g/dl (6.4-8.2) 03/04/18 07:00 Albumin 3.1 g/dl (3.4-5.0) L 03/04/18 07:00 Urine Color Ltyellow 03/03/18 12:00 Urine Appearance Slcloudy 03/03/18 12:00 Urine pH 6.0 (5.0-8.0) 03/03/18 12:00 Ur Specific [place] 1.020 (1.001-1.035) 03/03/18 12:00 Urine Protein Negative (NEGATIVE) 03/03/18 12:00 Urine Glucose (UA) Negative (NEGATIVE) 03/03/18 12:00 Urine Ketones Negative (NEGATIVE) 03/03/18 12:00 Urine Blood Negative (NEGATIVE) 03/03/18 12:00 Urine Nitrite Negative (NEGATIVE) 03/03/18 12:00 Urine Bilirubin Negative (<2.0 mg/dL) 03/03/18 12:00 Urine Urobilinogen Negative mg/dL (0.2-1.0) 03/03/18 12:00 Ur Leukocyte Esterase Negative (NEGATIVE) 03/03/18 12:00 RPR Titer Nonreactive (NONREACTIVE) 03/04/18 07:00 Labs noted Assessment: 03/05/18 11:08 Withdrawal sx Plan: Continue detox
[2018-03-05 11:32] LABS: BASO % 1.4 % (0-2.0); EOS % 3.3 % (0-4.5); HEMATOCRIT 37.1 % (35.4-49); HEMOGLOBIN 11.3 GM/dL (11.7-16.9); LYMPH % 29.6 % (8-40); MCH 21.6 pg (25.7-33.7); MCHC 30.4 g/dl (32.0-35.9); MEAN CELL VOLUME 70.9 fl (80-96); MEAN PLT VOLUME 8.2 fl (7.5-11.1); MONO % 7.5 % (3.8-10.2); NEUT % 58.2 % (42.8-82.8); PLATELET COUNT 320 K/MM3 (134-434); RBC 5.23 M/mm3 (4.00-5.60); RDW 17.9 % (11.9-15.9); WHITE BLOOD COUNT 7.7 K/mm3 (4.0-10.0)
--- NOTE | 2018-03-05 12:18 | PN ---
[facility] Progress Note Note: Psychiatry Attending's on-call note : Patient seen. Third visit to office since AM. Medication-seeking.Wants clonazepam. In addition to valium + other medications. Observed as slow,unsteady.Slurred speech. Visibly sedated.Irritable at times.Needs limits. Patient is redirected by this race and sports book writer.Good response.
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
[2018-03-05 15:45] LABS: ANISOCYTOSIS 1+
[2018-03-05 15:46] LABS: ACANTHOCYTES 1+
[2018-03-05] MEDS: ACETAMINOPHEN 325 MG TABLET (FP) PO PRN (15:46)
[2018-03-05] MEDS: traZODone HCL 50 MG TABLET (FP) PO SCH (22:36)
[2018-03-05] MEDS: THIAMINE HCL 100 MG TABLET (FP) PO SCH (22:36)
[2018-03-06] MEDS: diazePAM 5 MG TABLET PO PRN (05:38)
[2018-03-06] MEDS ORDERED: METHADONE HCL 5 MG TABLET (FOR DETOX USE ONLY) PO ONE (10:00)
[2018-03-06] MEDS: ALBUTEROL SO4 8 GM HFA INHALER IH PRN (10:19)
[2018-03-06] MEDS: cloNIDine HCL 0.1 MG TABLET PO SCH ×2 (10:20→22:16)
[2018-03-06] MEDS: PRENATAL VITAMINS W/ FOLIC ACID TABLET (FP) PO SCH (10:20)
[2018-03-06] MEDS: NICOTINE 21 MG/24 HOURS TOPICAL PATCH TD SCH (10:21)
[2018-03-06] MEDS: CYCLOBENZAPRINE HCL 10 MG TABLET (FP) PO PRN ×3 (10:23→22:16)
[2018-03-06] MEDS: IBUPROFEN 400 MG TABLET (FP) PO PRN ×2 (14:34→21:08)
--- NOTE | 2018-03-06 17:05 | PN ---
S Progress Note (SOAP) Subjective: Back pain, chills, sweating Objective: 03/06/18 17:03 Last Vital Signs Temp Pulse Resp BP Pulse Ox 97.4 F L 82 18 105/62 03/06/18 14:51 03/06/18 14:51 03/06/18 14:51 03/06/18 14:51 Laboratory Tests 03/03/18 03/04/18 03/04/18 12:00 07:00 07:00 WBC 12.5 H RBC 5.15 Hgb 11.0 L Hct 36.2 MCV 70.2 L MCH 21.4 L MCHC 30.5 L RDW 17.8 H Plt Count 377 D MPV 7.7 D Absolute Neuts (auto) Neutrophils % Lymphocytes % Monocytes % Eosinophils % Basophils % Nucleated RBC % Hypochromia Poikilocytosis Anisocytosis Microcytosis Acanthocytes (Spur) Sodium 142 Potassium 4.4 Chloride 105 Carbon Dioxide 26 Anion Gap 10 BUN 17 Creatinine 0.7 Creat Clearance w eGFR > 60 Random Glucose 113 H Calcium 9.0 Total Bilirubin 0.3 AST 41 H ALT 42 Alkaline Phosphatase 63 Total Protein 7.6 Albumin 3.1 L Urine Color Ltyellow Urine Appearance Slcloudy Urine pH 6.0 Ur Specific [place] 1.020 Urine Protein Negative Urine Glucose (UA) Negative Urine Ketones Negative Urine Blood Negative Urine Nitrite Negative Urine Bilirubin Negative Urine Urobilinogen Negative Ur Leukocyte Esterase Negative RPR Titer 03/04/18 03/05/18 07:00 07:40 WBC 7.7 RBC 5.23 Hgb 11.3 L Hct 37.1 MCV 70.9 L MCH 21.6 L MCHC 30.4 L RDW 17.9 H Plt Count 320 MPV 8.2 Absolute Neuts (auto) 4.5 Neutrophils % 58.2 Lymphocytes % 29.6 Monocytes % 7.5 Eosinophils % 3.3 Basophils % 1.4 Nucleated RBC % 0 Hypochromia 2+ Poikilocytosis 1+ Anisocytosis 1+ Microcytosis 1+ Acanthocytes (Spur) 1+ Sodium Potassium Chloride Carbon Dioxide Anion Gap BUN Creatinine Creat Clearance w eGFR Random Glucose Calcium Total Bilirubin AST ALT Alkaline Phosphatase Total Protein Albumin Urine Color Urine Appearance Urine pH Ur Specific [place] Urine Protein Urine Glucose (UA) Urine Ketones Urine Blood Urine Nitrite Urine Bilirubin Urine Urobilinogen Ur Leukocyte Esterase RPR Titer Nonreactive Labs reviewed: Assessment: 03/06/18 17:05 Withdrawal sx Plan: Continue detox
[2018-03-06] MEDS: hydrOXYzine PAMOATE 25 MG CAPSULE (FP) PO PRN (17:28)
[2018-03-06] MEDS: traZODone HCL 50 MG TABLET (FP) PO SCH (22:16)
[2018-03-06] MEDS: THIAMINE HCL 100 MG TABLET (FP) PO SCH (22:16)
[2018-03-07] MEDS ORDERED: METHADONE HCL 10 MG TABLET (FOR DETOX USE ONLY) PO ONE (10:00)
[2018-03-07] MEDS: cloNIDine HCL 0.1 MG TABLET PO SCH ×2 (10:21→22:23)
[2018-03-07] MEDS: PRENATAL VITAMINS W/ FOLIC ACID TABLET (FP) PO SCH (10:22)
[2018-03-07] MEDS: CYCLOBENZAPRINE HCL 10 MG TABLET (FP) PO PRN ×2 (10:22→22:25)
[2018-03-07] MEDS: NICOTINE 21 MG/24 HOURS TOPICAL PATCH TD SCH (10:22)
[2018-03-07] MEDS: ACETAMINOPHEN 325 MG TABLET (FP) PO PRN (10:23)
--- NOTE | 2018-03-07 13:35 | PN ---
S Progress Note (SOAP) Subjective: Sweating, vomiting, interrupted sleep Objective: 03/07/18 13:35 Last Vital Signs Temp Pulse Resp BP Pulse Ox 98.4 F 72 19 125/67 03/07/18 09:51 03/07/18 09:51 03/07/18 09:51 03/07/18 09:51 Laboratory Tests 03/03/18 03/04/18 03/04/18 12:00 07:00 07:00 WBC 12.5 H RBC 5.15 Hgb 11.0 L Hct 36.2 MCV 70.2 L MCH 21.4 L MCHC 30.5 L RDW 17.8 H Plt Count 377 D MPV 7.7 D Absolute Neuts (auto) Neutrophils % Lymphocytes % Monocytes % Eosinophils % Basophils % Nucleated RBC % Hypochromia Poikilocytosis Anisocytosis Microcytosis Acanthocytes (Spur) Sodium 142 Potassium 4.4 Chloride 105 Carbon Dioxide 26 Anion Gap 10 BUN 17 Creatinine 0.7 Creat Clearance w eGFR > 60 Random Glucose 113 H Calcium 9.0 Total Bilirubin 0.3 AST 41 H ALT 42 Alkaline Phosphatase 63 Total Protein 7.6 Albumin 3.1 L Urine Color Ltyellow Urine Appearance Slcloudy Urine pH 6.0 Ur Specific [place] 1.020 Urine Protein Negative Urine Glucose (UA) Negative Urine Ketones Negative Urine Blood Negative Urine Nitrite Negative Urine Bilirubin Negative Urine Urobilinogen Negative Ur Leukocyte Esterase Negative RPR Titer 03/04/18 03/05/18 07:00 07:40 WBC 7.7 RBC 5.23 Hgb 11.3 L Hct 37.1 MCV 70.9 L MCH 21.6 L MCHC 30.4 L RDW 17.9 H Plt Count 320 MPV 8.2 Absolute Neuts (auto) 4.5 Neutrophils % 58.2 Lymphocytes % 29.6 Monocytes % 7.5 Eosinophils % 3.3 Basophils % 1.4 Nucleated RBC % 0 Hypochromia 2+ Poikilocytosis 1+ Anisocytosis 1+ Microcytosis 1+ Acanthocytes (Spur) 1+ Sodium Potassium Chloride Carbon Dioxide Anion Gap BUN Creatinine Creat Clearance w eGFR Random Glucose Calcium Total Bilirubin AST ALT Alkaline Phosphatase Total Protein Albumin Urine Color Urine Appearance Urine pH Ur Specific [place] Urine Protein Urine Glucose (UA) Urine Ketones Urine Blood Urine Nitrite Urine Bilirubin Urine Urobilinogen Ur Leukocyte Esterase RPR Titer Nonreactive Labs reviewed Assessment: 03/07/18 13:38 Withdrawal sxs Plan: Continue detox
[2018-03-07] MEDS: IBUPROFEN 400 MG TABLET (FP) PO PRN (16:54)
[2018-03-07] MEDS: traZODone HCL 50 MG TABLET (FP) PO SCH (22:22)
[2018-03-07] MEDS: THIAMINE HCL 100 MG TABLET (FP) PO SCH (22:22)
[2018-03-07] MEDS: MELATONIN 5 MG TABLETS PO PRN (22:23)
[2018-03-08] MEDS ORDERED: METHADONE HCL 5 MG TABLET (FOR DETOX USE ONLY) PO ONE (06:00)
[2018-03-08 09:28] VITALS: BP 116/65; PULSE 96; TEMP 97.2
[2018-03-08] MEDS: PRENATAL VITAMINS W/ FOLIC ACID TABLET (FP) PO SCH (10:27)
[2018-03-08] MEDS: cloNIDine HCL 0.1 MG TABLET PO SCH (10:27)
[2018-03-08] MEDS: CYCLOBENZAPRINE HCL 10 MG TABLET (FP) PO PRN (10:28)
[2018-03-08] MEDS: ACETAMINOPHEN 325 MG TABLET (FP) PO PRN (10:28)
[2018-03-08] MEDS: NICOTINE 21 MG/24 HOURS TOPICAL PATCH TD SCH (10:28)
== END 2018-03-08 13:42 | disposition other institution (70) | DRG 773 ==
LOC: YASAS 08:41 → Y3N 09:36
PROC: HZ2ZZZZ Detoxification Services for Substance Abuse Treatment (ICD-10-PCS; principal; 2018-03-03)
DX: F11.23 Opioid dependence with withdrawal (principal); F14.20 Cocaine dependence, uncomplicated; F17.210 Nicotine dependence, cigarettes, uncomplicated; F32.9 Major depressive disorder, single episode, unspecified; F19.24 Other psychoactive substance dependence with psychoactive substance-induced mood disorder; F60.9 Personality disorder, unspecified; I10 Essential (primary) hypertension; J45.909 Unspecified asthma, uncomplicated; D72.829 Elevated white blood cell count, unspecified; K21.9 Gastro-esophageal reflux disease without esophagitis; R76.11 Nonspecific reaction to tuberculin skin test without active tuberculosis; B18.2 Chronic viral hepatitis C; G47.00 Insomnia, unspecified; Z91.19 Patient's noncompliance with other medical treatment and regimen; Z87.898 Personal history of other specified conditions; Y04.0XXA Assault by unarmed brawl or fight, initial encounter; Y93.9 Activity, unspecified; Y92.239 Unspecified place in hospital as the place of occurrence of the external cause; Z91.5 Personal history of self-harm
CPT/HCPCS: 36415; 71046-TC-FY; 80053; 81003; 85025; 85027; 86593; 93005; 93010; 94640; J0735

== ENCOUNTER 2018-03-08 12:36 | Inpatient (IN) | payer OTHER ==
[2018-03-08] MEDS ORDERED: P-EPHED 60MG/TRIPROLIDI 2.5MG TABLET PO PRN (13:31)
[2018-03-08] MEDS ORDERED: MAGNESIUM CITRATE 300 ML BOTTLE PO PRN (13:31)
[2018-03-08] MEDS ORDERED: LOPERAMIDE HCL 2 MG CAPSULE PO PRN (13:31)
[2018-03-08] MEDS ORDERED: MENTHOL/PHENOL 1 EACH UD MM PRN (13:31)
[2018-03-08] MEDS ORDERED: guaiFENesin/D-METHORPHAN HB 10 ML UNIT-DOSE CUPS PO PRN (13:31)
[2018-03-08] MEDS ORDERED: MAGNESIUM HYDROX 2400MG/30ML ORAL SUSPENSION 30 ML CUP PO PRN (13:31)
[2018-03-08] MEDS: cloNIDine HCL 0.1 MG TABLET PO PRN (15:40)
[2018-03-08] MEDS: hydrOXYzine PAMOATE 25 MG CAPSULE (FP) PO PRN (15:40)
--- NOTE | 2018-03-08 17:42 | PN ---
[facility] Progress Note Note: Psychiatric nurse practitioner: Chart reviewed. Dr. March note read and appreciated. Patient admitted to N. Will order trazodone 50mg qhs.
[2018-03-08] MEDS: THIAMINE HCL 100 MG TABLET (FP) PO SCH (21:21)
[2018-03-08] MEDS: traZODone HCL 50 MG TABLET (FP) PO SCH (21:21)
[2018-03-08] MEDS: MAG HYDROX/AL HYDROX/SIMETH 30 ML UNIT-DOSE CUP PO PRN (21:22)
--- NOTE | 2018-03-08 21:26 | PN ---
S Progress Note Note: Vital Signs Temperature 98.7 F 03/08/18 13:26 Pulse Rate 80 03/08/18 13:26 Respiratory Rate 18 03/08/18 13:26 Blood Pressure 130/67 03/08/18 13:26 O2 Sat by Pulse Oximetry (%) c/o of nausea and vomiting zofran prn fluids as tolerated continue to monitor
[2018-03-08] MEDS ORDERED: ONDANSETRON *ODT* 4 MG TABLET SL ONE (21:30)
[2018-03-09] MEDS: MAG HYDROX/AL HYDROX/SIMETH 30 ML UNIT-DOSE CUP PO PRN ×2 (07:19→17:49)
[2018-03-09] MEDS: hydrOXYzine PAMOATE 25 MG CAPSULE (FP) PO PRN (10:25)
[2018-03-09] MEDS: PRENATAL VITAMINS W/ FOLIC ACID TABLET (FP) PO SCH (10:25)
[2018-03-09] MEDS: cloNIDine HCL 0.1 MG TABLET PO PRN (10:26)
[2018-03-09] MEDS: IBUPROFEN 400 MG TABLET (FP) PO PRN (10:26)
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
--- NOTE | 2018-03-09 11:25 | HP ---
[facility] Rehab Assess/Revision - Admission History Admitted to Rehab from: [facility] Date of Admission to Rehab: 03/08/18 - Vital signs Vital Signs: Vital Signs Period Temp Pulse Resp BP Sys/Powers Pulse Ox Last 24 Hr 97.9 F-98.7 F 66-86 18-20 118-130/60-75 - Findings Detox History & Physical reviewed: Yes Concur with findings: Yes Inpatient Rehab Admission - Initial Determination Are CD services needed?: Yes Free of communicable disease: Yes Not in need of hospitalization: Yes - Rehab Admission Criteria Patient is meeting Inpatient Rehab admission criteria:: Yes
--- NOTE | 2018-03-09 13:27 | HP ---
Psychiatrist Admission - Data Date of interview: 03/09/18 Admission source: [facility] Identifying data: This is the second admission to [address] [place] [address] inpatient rehabilitation for this 52 years old H sing H father of 1 grown daughter, homeless,supported by family. Psychiatric History: patient reports long history of depressed mood,anxiety, drug use.He was dx with Bipolar disorder.He reports at least 5 psychiatric hospitalizations.most recent was a few years ago to [facility] due to depression,suicidal attempts(superficially cut himself).He reports poor adherence to OPD care.patient stopped to see his psychiatrist a few months ago.He restarted Trzodone 50 mg po hs while being in detox on [facility] prescribed by ,but still feels extremely anxious stating that Seroquel used to help him in the past. Physical/Sexual Abuse/Trauma History: denies Vital Signs: Vital Signs - 24 hr 03/08/18 03/08/18 03/09/18 13:26 22:33 00:30 Temperature 98.7 F 97.9 F Pulse Rate 80 66 Respiratory 18 18 20 Rate Blood Pressure 130/67 130/75 03/09/18 03/09/18 03/09/18 03:30 06:46 10:00 Temperature 98.6 F Pulse Rate 86 78 Respiratory 18 20 Rate Blood Pressure 118/60 100/58 L Allergies/Adverse Reactions: Allergies Allergy/AdvReac Type Severity Reaction Status Date / Time No Known Allergies Allergy Verified 03/08/18 13:24 Date of last physical exam: 03/08/18 Concur with the findings of this exam: Yes - Substance Abuse/Tx History Hx Alcohol Use: Yes (drinking since 21 yo,beer,[place]) Hx Substance Use: Yes (cocaine since 19 yo,heroin since 19 yo(IV),20-25 bags daily) Substance Use Type: Alcohol, Cocaine, Heroin Hx Substance Use Treatment: Yes (completed this program in October 2016) Mental Status Exam - Mental Status Exam Alert and Oriented to: Time, Place, Person Cognitive Function: Grossly Intact Patient Appearance: Unkempt Mood: Sad, Nervous Affect: Mood Congruent, Labile Patient Behavior: Cooperative Speech Pattern: Clear Voice Loudness: Normal Thought Process: Goal Oriented Thought Disorder: Not Present Hallucinations: Denies Suicidal Ideation: Denies Homicidal Ideation: Denies Insight/Judgement: Fair Sleep: Difficulty falling asleep Appetite: Good Muscle strength/Tone: Normal Gait/Station: Normal Psychiatric Findings - Problem List ([place] 1, 2,3) (1) Asthma Current Visit: Yes Status: Chronic (2) Cocaine dependence Current Visit: Yes Status: Chronic Qualifiers: (3) Nicotine dependence Current Visit: Yes Status: Chronic Qualifiers: (4) Opioid dependence Current Visit: Yes Status: Chronic (5) Substance induced mood disorder Current Visit: Yes Status: Chronic - Initial Treatment Plan Initial Treatment Plan: Start Seroquel 50 mg po bid,continue Trazodone 50 mg po hs.will monitor progress.
[2018-03-09] MEDS ORDERED: hydrOXYzine PAMOATE 25 MG CAPSULE (FP) PO PRN (13:35)
[2018-03-09] MEDS: hydrOXYzine PAMOATE 50 MG CAPSULE (FP) PO PRN (15:30)
[2018-03-09] MEDS: QUEtiapine FUMARATE 50 MG TABLET PO SCH ×2 (15:31→21:31)
[2018-03-09] MEDS: ONDANSETRON *ODT* 4 MG TABLET SL PRN (17:54)
[2018-03-09] MEDS: THIAMINE HCL 100 MG TABLET (FP) PO SCH (21:31)
[2018-03-09] MEDS: traZODone HCL 50 MG TABLET (FP) PO SCH (21:31)
[2018-03-09] MEDS ORDERED: cloNIDine HCL 0.1 MG TABLET PO SCH (22:00)
[2018-03-09] MEDS ORDERED: NICOTINE POLACRILEX 2 MG GUM BC PRN (22:11)
[2018-03-10] MEDS: IBUPROFEN 400 MG TABLET (FP) PO PRN ×2 (03:05→21:34)
[2018-03-10] MEDS: hydrOXYzine PAMOATE 50 MG CAPSULE (FP) PO PRN ×2 (03:06→10:32)
--- NOTE | 2018-03-10 10:20 | PN ---
[facility] Progress Note Note: C/O BODY ACHES/MUSCLE SPASMS, POST DETOX X 2 DAYS Vital Signs 03/10/18 03/10/18 03:30 06:32 Temperature 98.6 F Pulse Rate 64 Respiratory 18 18 Rate Blood Pressure 118/64 PLAN:INCREASE PO FLUIDS FLEXERIL DIRECTED.
[2018-03-10] MEDS: PRENATAL VITAMINS W/ FOLIC ACID TABLET (FP) PO SCH (10:30)
[2018-03-10] MEDS: QUEtiapine FUMARATE 50 MG TABLET PO SCH ×2 (10:30→21:32)
[2018-03-10] MEDS: cloNIDine HCL 0.1 MG TABLET PO PRN (10:32)
--- NOTE | 2018-03-10 11:18 | PN ---
[facility] Progress Note Note: 3 STITCHES REMOVED TODAY. AREA IS HEALED. PT IS ALERT O X 3. INSTRUCTED PT TO FOLLOW UP WITH RECOMMENDATIONS IN A TIMELY MANNER SHOULD SUCH EPISODES OCCUR AT ANOTHER TIME.
[2018-03-10] MEDS: BACITRACIN 0.9 GM PACKET TP SCH ×2 (12:02→21:32)
[2018-03-10] MEDS: CYCLOBENZAPRINE HCL 10 MG TABLET (FP) PO PRN (13:46)
[2018-03-10] MEDS: THIAMINE HCL 100 MG TABLET (FP) PO SCH (21:32)
[2018-03-10] MEDS: traZODone HCL 50 MG TABLET (FP) PO SCH (21:32)
[2018-03-11] MEDS: MAG HYDROX/AL HYDROX/SIMETH 30 ML UNIT-DOSE CUP PO PRN (02:38)
[2018-03-11] MEDS: ONDANSETRON *ODT* 4 MG TABLET SL PRN ×2 (04:08→12:52)
[2018-03-11] MEDS: PRENATAL VITAMINS W/ FOLIC ACID TABLET (FP) PO SCH (10:22)
[2018-03-11] MEDS: BACITRACIN 0.9 GM PACKET TP SCH ×2 (10:22→21:46)
[2018-03-11] MEDS: QUEtiapine FUMARATE 50 MG TABLET PO SCH ×2 (10:22→21:46)
[2018-03-11] MEDS: CYCLOBENZAPRINE HCL 10 MG TABLET (FP) PO PRN (10:25)
[2018-03-11] MEDS: hydrOXYzine PAMOATE 50 MG CAPSULE (FP) PO PRN (10:25)
[2018-03-11] MEDS: cloNIDine HCL 0.1 MG TABLET PO PRN ×2 (12:51→21:54)
[2018-03-11] MEDS ORDERED: TRIMETHOBENZAMIDE HCL 200MG/2ML INJ IM PRN (15:09)
--- NOTE | 2018-03-11 15:18 | PN ---
[facility] Progress Note Note: C/O N/V LAST NIGHT AND EARLIER IN THE MORNING WITH PAIN AND REFLUX. PLAN;ZOFRAN SL OR TIGAN INJ DIRECTED PROTONIX 40 MG PO DAILY
[2018-03-11] MEDS: PANTOPRAZOLE 40 MG TABLET (FP) PO SCH (16:12)
[2018-03-11] MEDS: traZODone HCL 50 MG TABLET (FP) PO SCH (21:46)
[2018-03-11] MEDS: THIAMINE HCL 100 MG TABLET (FP) PO SCH (21:46)
[2018-03-12] MEDS: ONDANSETRON *ODT* 4 MG TABLET SL PRN (01:51)
[2018-03-12] MEDS: PANTOPRAZOLE 40 MG TABLET (FP) PO SCH (10:24)
[2018-03-12] MEDS: PRENATAL VITAMINS W/ FOLIC ACID TABLET (FP) PO SCH (10:24)
[2018-03-12] MEDS: QUEtiapine FUMARATE 50 MG TABLET PO SCH ×2 (10:24→21:39)
[2018-03-12] MEDS: BACITRACIN 0.9 GM PACKET TP SCH ×2 (10:24→21:39)
[2018-03-12] MEDS: cloNIDine HCL 0.1 MG TABLET PO PRN ×2 (10:26→21:41)
[2018-03-12] MEDS: CYCLOBENZAPRINE HCL 10 MG TABLET (FP) PO PRN ×2 (10:26→21:41)
[2018-03-12] MEDS ORDERED: ALBUTEROL SO4 8 GM HFA INHALER IH PRN (14:27)
[2018-03-12] MEDS ORDERED: ALBUTEROL SO4 8 GM HFA INHALER IH ONE (15:27)
[2018-03-12] MEDS: traZODone HCL 50 MG TABLET (FP) PO SCH (21:39)
[2018-03-12] MEDS: THIAMINE HCL 100 MG TABLET (FP) PO SCH (21:39)
[2018-03-13] MEDS: hydrOXYzine PAMOATE 50 MG CAPSULE (FP) PO PRN (07:07)
[2018-03-13] MEDS: ACETAMINOPHEN 325 MG TABLET (FP) PO PRN ×2 (07:08→20:09)
[2018-03-13] MEDS: PRENATAL VITAMINS W/ FOLIC ACID TABLET (FP) PO SCH (09:59)
[2018-03-13] MEDS: PANTOPRAZOLE 40 MG TABLET (FP) PO SCH (09:59)
[2018-03-13] MEDS: QUEtiapine FUMARATE 50 MG TABLET PO SCH ×2 (09:59→22:03)
[2018-03-13] MEDS: BACITRACIN 0.9 GM PACKET TP SCH ×2 (09:59→22:03)
[2018-03-13] MEDS: cloNIDine HCL 0.1 MG TABLET PO PRN ×2 (10:00→22:03)
[2018-03-13] MEDS: MAG HYDROX/AL HYDROX/SIMETH 30 ML UNIT-DOSE CUP PO PRN (17:28)
[2018-03-13] MEDS: traZODone HCL 50 MG TABLET (FP) PO SCH (22:03)
[2018-03-13] MEDS: CYCLOBENZAPRINE HCL 10 MG TABLET (FP) PO PRN (22:03)
[2018-03-13] MEDS: THIAMINE HCL 100 MG TABLET (FP) PO SCH (22:03)
[2018-03-14] MEDS: ACETAMINOPHEN 325 MG TABLET (FP) PO PRN ×3 (06:34→18:45)
[2018-03-14] MEDS: BACITRACIN 0.9 GM PACKET TP SCH ×2 (10:13→21:39)
[2018-03-14] MEDS: PANTOPRAZOLE 40 MG TABLET (FP) PO SCH (10:13)
[2018-03-14] MEDS: QUEtiapine FUMARATE 50 MG TABLET PO SCH ×2 (10:13→21:37)
[2018-03-14] MEDS: PRENATAL VITAMINS W/ FOLIC ACID TABLET (FP) PO SCH (10:13)
[2018-03-14] MEDS: CYCLOBENZAPRINE HCL 10 MG TABLET (FP) PO PRN ×2 (10:14→21:38)
[2018-03-14] MEDS: THIAMINE HCL 100 MG TABLET (FP) PO SCH (21:37)
[2018-03-14] MEDS: traZODone HCL 50 MG TABLET (FP) PO SCH (21:37)
[2018-03-14] MEDS: cloNIDine HCL 0.1 MG TABLET PO PRN (21:39)
[2018-03-15] MEDS: ACETAMINOPHEN 325 MG TABLET (FP) PO PRN (07:44)
[2018-03-15] MEDS: PRENATAL VITAMINS W/ FOLIC ACID TABLET (FP) PO SCH (09:58)
[2018-03-15] MEDS: PANTOPRAZOLE 40 MG TABLET (FP) PO SCH (09:58)
[2018-03-15] MEDS: QUEtiapine FUMARATE 50 MG TABLET PO SCH ×2 (09:58→21:55)
[2018-03-15] MEDS: BACITRACIN 15 GM TUBE TOPICAL OINTMENT TP SCH ×2 (09:58→21:54)
[2018-03-15] MEDS: CYCLOBENZAPRINE HCL 10 MG TABLET (FP) PO PRN (10:00)
[2018-03-15] MEDS: cloNIDine HCL 0.1 MG TABLET PO PRN (10:00)
[2018-03-15] MEDS: IBUPROFEN 400 MG TABLET (FP) PO PRN (15:10)
[2018-03-15] MEDS: traZODone HCL 50 MG TABLET (FP) PO SCH (21:54)
[2018-03-15] MEDS: LIDOCAINE PATCH REMOVAL MC SCH (21:54)
[2018-03-15] MEDS: THIAMINE HCL 100 MG TABLET (FP) PO SCH (21:55)
[2018-03-16] MEDS: ACETAMINOPHEN 325 MG TABLET (FP) PO PRN (08:33)
[2018-03-16] MEDS: LIDOCAINE 5% TOPICAL PATCH TP SCH (10:15)
[2018-03-16] MEDS: QUEtiapine FUMARATE 50 MG TABLET PO SCH ×2 (10:15→21:45)
[2018-03-16] MEDS: PRENATAL VITAMINS W/ FOLIC ACID TABLET (FP) PO SCH (10:16)
[2018-03-16] MEDS: PANTOPRAZOLE 40 MG TABLET (FP) PO SCH (10:16)
[2018-03-16] MEDS: BACITRACIN 15 GM TUBE TOPICAL OINTMENT TP SCH ×2 (10:16→21:49)
[2018-03-16] MEDS: cloNIDine HCL 0.1 MG TABLET PO PRN ×2 (10:18→21:46)
[2018-03-16] MEDS: CYCLOBENZAPRINE HCL 10 MG TABLET (FP) PO PRN ×2 (10:18→21:46)
[2018-03-16] MEDS: traZODone HCL 50 MG TABLET (FP) PO SCH (21:44)
[2018-03-16] MEDS: THIAMINE HCL 100 MG TABLET (FP) PO SCH (21:45)
[2018-03-16] MEDS: LIDOCAINE PATCH REMOVAL MC SCH (21:47)
--- NOTE | 2018-03-17 10:02 | PN ---
[facility] Progress Note Note: PT C/O BACKPAIN. ON LIDOCAINE PATCH DAILY, FLEXERIL 10 MG PO Q8H PRN, MOTRIN 400 MG PO PRN. REPORTS NOT GETTING RELIEF. PT NOT ASKING FOR PAIN RELIEF MED MORE THAN ONCE OR TWICE OF REGULAR DOSE. Vital Signs 03/17/18 03/17/18 03:30 07:10 Temperature 98.1 F Pulse Rate 74 Respiratory 18 18 Rate Blood Pressure 107/74 CHANGE FLEXERIL PRN TO SCHEDULE DOSES. MOTRIN PRN DIRECTED CONTINUE LIDOCAINE PATCH DIRECTED.
[2018-03-17] MEDS: QUEtiapine FUMARATE 50 MG TABLET PO SCH ×2 (10:22→21:43)
[2018-03-17] MEDS: PRENATAL VITAMINS W/ FOLIC ACID TABLET (FP) PO SCH (10:22)
[2018-03-17] MEDS: PANTOPRAZOLE 40 MG TABLET (FP) PO SCH (10:22)
[2018-03-17] MEDS: BACITRACIN 15 GM TUBE TOPICAL OINTMENT TP SCH ×2 (10:23→21:43)
[2018-03-17] MEDS: LIDOCAINE 5% TOPICAL PATCH TP SCH (10:23)
[2018-03-17] MEDS: cloNIDine HCL 0.1 MG TABLET PO PRN (10:25)
[2018-03-17] MEDS: ACETAMINOPHEN 325 MG TABLET (FP) PO PRN (13:47)
[2018-03-17] MEDS: CYCLOBENZAPRINE HCL 10 MG TABLET (FP) PO SCH ×2 (13:48→21:42)
[2018-03-17] MEDS: hydrOXYzine PAMOATE 50 MG CAPSULE (FP) PO PRN (13:48)
[2018-03-17] MEDS: THIAMINE HCL 100 MG TABLET (FP) PO SCH (21:43)
[2018-03-17] MEDS: LIDOCAINE PATCH REMOVAL MC SCH (21:44)
[2018-03-17] MEDS: traZODone HCL 50 MG TABLET (FP) PO SCH (21:45)
[2018-03-18] MEDS: CYCLOBENZAPRINE HCL 10 MG TABLET (FP) PO SCH ×3 (06:29→21:39)
[2018-03-18] MEDS: PRENATAL VITAMINS W/ FOLIC ACID TABLET (FP) PO SCH (10:12)
[2018-03-18] MEDS: PANTOPRAZOLE 40 MG TABLET (FP) PO SCH (10:12)
[2018-03-18] MEDS: cloNIDine HCL 0.1 MG TABLET PO PRN ×2 (10:13→21:40)
[2018-03-18] MEDS: BACITRACIN 15 GM TUBE TOPICAL OINTMENT TP SCH ×2 (10:13→21:50)
[2018-03-18] MEDS: LIDOCAINE 5% TOPICAL PATCH TP SCH (10:13)
[2018-03-18] MEDS: ACETAMINOPHEN 325 MG TABLET (FP) PO PRN (10:14)
[2018-03-18] MEDS: QUEtiapine FUMARATE 50 MG TABLET PO SCH ×2 (10:15→21:39)
[2018-03-18] MEDS: traZODone HCL 50 MG TABLET (FP) PO SCH (21:39)
[2018-03-18] MEDS: IBUPROFEN 400 MG TABLET (FP) PO PRN (21:39)
[2018-03-18] MEDS: THIAMINE HCL 100 MG TABLET (FP) PO SCH (21:39)
[2018-03-18] MEDS: LIDOCAINE PATCH REMOVAL MC SCH (21:50)
[2018-03-19] MEDS: CYCLOBENZAPRINE HCL 10 MG TABLET (FP) PO SCH ×3 (06:49→21:33)
[2018-03-19] MEDS: BACITRACIN 15 GM TUBE TOPICAL OINTMENT TP SCH ×2 (10:21→21:33)
[2018-03-19] MEDS: PRENATAL VITAMINS W/ FOLIC ACID TABLET (FP) PO SCH (10:22)
[2018-03-19] MEDS: LIDOCAINE 5% TOPICAL PATCH TP SCH (10:22)
[2018-03-19] MEDS: QUEtiapine FUMARATE 50 MG TABLET PO SCH ×2 (10:22→21:34)
[2018-03-19] MEDS: PANTOPRAZOLE 40 MG TABLET (FP) PO SCH (10:22)
[2018-03-19] MEDS: ACETAMINOPHEN 325 MG TABLET (FP) PO PRN (10:23)
[2018-03-19] MEDS: THIAMINE HCL 100 MG TABLET (FP) PO SCH (21:33)
[2018-03-19] MEDS: traZODone HCL 50 MG TABLET (FP) PO SCH (21:33)
[2018-03-19] MEDS: LIDOCAINE PATCH REMOVAL MC SCH (21:33)
[2018-03-19] MEDS: cloNIDine HCL 0.1 MG TABLET PO PRN (21:34)
[2018-03-20] MEDS: CYCLOBENZAPRINE HCL 10 MG TABLET (FP) PO SCH ×3 (06:44→21:20)
[2018-03-20] MEDS: BACITRACIN 15 GM TUBE TOPICAL OINTMENT TP SCH ×2 (10:32→21:21)
[2018-03-20] MEDS: PRENATAL VITAMINS W/ FOLIC ACID TABLET (FP) PO SCH (10:32)
[2018-03-20] MEDS: cloNIDine HCL 0.1 MG TABLET PO PRN ×2 (10:32→21:20)
[2018-03-20] MEDS: LIDOCAINE 5% TOPICAL PATCH TP SCH (10:32)
[2018-03-20] MEDS: PANTOPRAZOLE 40 MG TABLET (FP) PO SCH (10:32)
[2018-03-20] MEDS: QUEtiapine FUMARATE 50 MG TABLET PO SCH ×2 (10:33→21:21)
[2018-03-20] MEDS: ACETAMINOPHEN 325 MG TABLET (FP) PO PRN (14:51)
[2018-03-20] MEDS: traZODone HCL 50 MG TABLET (FP) PO SCH (21:20)
[2018-03-20] MEDS: LIDOCAINE PATCH REMOVAL MC SCH (21:20)
[2018-03-20] MEDS: THIAMINE HCL 100 MG TABLET (FP) PO SCH (21:20)
[2018-03-20] MEDS: IBUPROFEN 400 MG TABLET (FP) PO PRN (21:21)
[2018-03-21] MEDS: CYCLOBENZAPRINE HCL 10 MG TABLET (FP) PO SCH ×3 (06:28→21:35)
[2018-03-21] MEDS: PANTOPRAZOLE 40 MG TABLET (FP) PO SCH (10:44)
[2018-03-21] MEDS: PRENATAL VITAMINS W/ FOLIC ACID TABLET (FP) PO SCH (10:44)
[2018-03-21] MEDS: LIDOCAINE 5% TOPICAL PATCH TP SCH (10:44)
[2018-03-21] MEDS: QUEtiapine FUMARATE 50 MG TABLET PO SCH (10:44)
[2018-03-21] MEDS: BACITRACIN 15 GM TUBE TOPICAL OINTMENT TP SCH ×2 (10:44→21:36)
[2018-03-21] MEDS: cloNIDine HCL 0.1 MG TABLET PO PRN ×2 (10:44→21:37)
--- NOTE | 2018-03-21 16:40 | PN ---
Psychiatric Progress Note Vital Signs: Vital Signs Period Temp Pulse Resp BP Sys/Powers Pulse Ox Last 24 Hr 97.2 F 76-81 18-20 113-124/61-75 Date of Session: 03/21/18 Current Medications: Active Medications Generic Name Dose Route Start Last Admin Trade Name Freq PRN Reason Stop Dose Admin Acetaminophen 650 mg 03/08/18 13:31 03/20/18 14:51 Tylenol - PO 650 mg Q4H PRN Administration FEVER Al Hydroxide/Mg Hydroxide 30 ml 03/08/18 13:31 03/13/18 17:28 Mylanta Oral Suspension - PO 30 ml Q6H PRN Administration DYSPEPSIA Albuterol Sulfate 0 puff 03/12/18 14:27 03/13/18 13:08 Ventolin Hfa Inhaler - IH 1 puff Q4H PRN Administration SHORT OF BREATH/WHEEZING Bacitracin 1 applic 03/15/18 10:00 03/21/18 10:44 Bacitracin - TP Not Given BID OSIEL Clonidine 0.1 mg 03/19/18 21:37 03/21/18 10:44 Catapres - PO 0.1 mg BID PRN Administration WITHDRAWAL(CONT SUBST) Cyclobenzaprine HCl 10 mg 03/17/18 14:00 03/21/18 14:12 Flexeril - PO 10 mg TID OSIEL Administration Eucalyptus/Menthol/Phenol/Sorbitol 1 each 03/08/18 13:31 Cepastat Lozenge - MM Q4H PRN SORE THROAT Guaifenesin 10 ml 03/08/18 13:31 Robitussin Dm - PO Q6H PRN COUGH Ibuprofen 400 mg 03/08/18 13:31 03/20/18 21:21 Motrin - PO 400 mg Q6H PRN Administration Pain Level 4-6 Lidocaine 1 patch 03/16/18 10:00 03/21/18 10:44 Lidoderm Patch - TP 1 patch DAILY OSIEL Administration Loperamide HCl 4 mg 03/08/18 13:31 Imodium - PO Q6H PRN DIARRHEA Magnesium Citrate 300 ml 03/08/18 13:31 Citroma - PO Q48H PRN CONSTIPATION Magnesium Hydroxide 30 ml 03/08/18 13:31 Milk Of Magnesia - PO DAILY PRN CONSTIPATION Melatonin 5 mg 03/08/18 22:00 Melatonin PO HS PRN INSOMNIA Miscellaneous 1 each 03/15/18 22:00 03/20/18 21:20 Lidoderm Patch Removal MC Not Given DAILY@2200 OSIEL Nicotine Polacrilex 2 mg 03/09/18 22:11 03/10/18 21:33 Nicorette Gum - BC 2 mg Q2H PRN Administration NICOTINE REPLACEMENT RX Ondansetron HCl 8 mg 03/09/18 17:46 03/12/18 01:51 Zofran Odt - SL 8 mg Q8H PRN Administration NAUSEA AND/OR VOMITING Pantoprazole Sodium 40 mg 03/11/18 15:30 03/21/18 10:44 Protonix - PO 40 mg DAILY OSIEL Administration Multivit/Folic Acid/Iron 1 tab 03/09/18 10:00 03/21/18 10:44 Vitamins (Sjr) - PO 1 tab DAILY OSIEL Administration Pseudoephedrine/Triprolidine 1 combo 03/08/18 13:31 Actifed - PO TID PRN NASAL CONGESTION Thiamine HCl 100 mg 03/08/18 22:00 03/20/18 21:20 Vitamin B1 - PO 100 mg HS OSIEL Administration Trazodone HCl 150 mg 03/21/18 22:00 Desyrel - PO HS OSIEL Trimethobenzamide HCl 200 mg 03/11/18 15:09 Tigan Injection - IM Q8H PRN NAUSEA AND/OR VOMITING Current Side Effect: No Lab tests ordered: No Lab tests reviewed: Yes Provider note:: D/C Seroquel ,trazodone 50 mg po hs will be adjusted to 150 mg po hs and vistaril 50 mg po prn will be adjusted to 100 mg po tid. Total face to face time:: 35 Psychiatric Treatment Plan - Problem List (1) Asthma Current Visit: Yes (2) Cocaine dependence Current Visit: Yes Qualifiers: (3) Nicotine dependence Current Visit: Yes Qualifiers: (4) Opioid dependence Current Visit: Yes (5) Substance induced mood disorder Current Visit: Yes
[2018-03-21] MEDS: traZODone HCL 50 MG TABLET (FP) PO SCH (21:35)
[2018-03-21] MEDS: hydrOXYzine PAMOATE 50 MG CAPSULE (FP) PO SCH (21:35)
[2018-03-21] MEDS: THIAMINE HCL 100 MG TABLET (FP) PO SCH (21:35)
[2018-03-21] MEDS: LIDOCAINE PATCH REMOVAL MC SCH (21:36)
[2018-03-22] MEDS: hydrOXYzine PAMOATE 50 MG CAPSULE (FP) PO SCH ×3 (06:32→21:49)
[2018-03-22] MEDS: CYCLOBENZAPRINE HCL 10 MG TABLET (FP) PO SCH ×3 (06:32→21:50)
[2018-03-22] MEDS: LIDOCAINE 5% TOPICAL PATCH TP SCH (10:14)
[2018-03-22] MEDS: PRENATAL VITAMINS W/ FOLIC ACID TABLET (FP) PO SCH (10:14)
[2018-03-22] MEDS: cloNIDine HCL 0.1 MG TABLET PO PRN ×2 (10:14→21:49)
[2018-03-22] MEDS: BACITRACIN 15 GM TUBE TOPICAL OINTMENT TP SCH ×2 (10:14→21:51)
[2018-03-22] MEDS: PANTOPRAZOLE 40 MG TABLET (FP) PO SCH (10:14)
[2018-03-22] MEDS: IBUPROFEN 400 MG TABLET (FP) PO PRN (19:51)
[2018-03-22] MEDS: traZODone HCL 50 MG TABLET (FP) PO SCH (21:49)
[2018-03-22] MEDS: THIAMINE HCL 100 MG TABLET (FP) PO SCH (21:50)
[2018-03-22] MEDS: LIDOCAINE PATCH REMOVAL MC SCH (21:51)
[2018-03-23] MEDS: hydrOXYzine PAMOATE 50 MG CAPSULE (FP) PO SCH ×3 (06:33→21:37)
[2018-03-23] MEDS: CYCLOBENZAPRINE HCL 10 MG TABLET (FP) PO SCH ×3 (06:34→21:37)
[2018-03-23] MEDS: ACETAMINOPHEN 325 MG TABLET (FP) PO PRN (07:32)
[2018-03-23] MEDS: PANTOPRAZOLE 40 MG TABLET (FP) PO SCH (10:11)
[2018-03-23] MEDS: PRENATAL VITAMINS W/ FOLIC ACID TABLET (FP) PO SCH (10:11)
[2018-03-23] MEDS: LIDOCAINE 5% TOPICAL PATCH TP SCH (10:11)
[2018-03-23] MEDS: cloNIDine HCL 0.1 MG TABLET PO PRN (10:11)
[2018-03-23] MEDS: BACITRACIN 15 GM TUBE TOPICAL OINTMENT TP SCH ×2 (10:11→21:38)
[2018-03-23] MEDS: IBUPROFEN 400 MG TABLET (FP) PO PRN ×2 (16:33→21:38)
--- NOTE | 2018-03-23 21:11 | PN ---
S Progress Note Note: Vital Signs Temperature 98.8 F 03/23/18 06:52 Pulse Rate 81 03/23/18 10:00 Respiratory Rate 16 03/23/18 06:52 Blood Pressure 108/66 03/23/18 10:00 O2 Sat by Pulse Oximetry (%) patient c/o of pain by his liver and pointed to the right lower flank area. Reports pain worsen when he stretches put his arms over his head. Denies CP, SOB , dysuria, hematuria. Patient Aox3 no distress no adventitious breath sounds no CVA tendernesses Abd non tender , non-distended muscular pain tylenol prn increase fluids continue to monitor
[2018-03-23] MEDS: traZODone HCL 50 MG TABLET (FP) PO SCH (21:38)
[2018-03-23] MEDS: LIDOCAINE PATCH REMOVAL MC SCH (21:38)
[2018-03-23] MEDS: THIAMINE HCL 100 MG TABLET (FP) PO SCH (21:38)
[2018-03-24] MEDS: CYCLOBENZAPRINE HCL 10 MG TABLET (FP) PO SCH ×3 (06:31→21:44)
[2018-03-24] MEDS: hydrOXYzine PAMOATE 50 MG CAPSULE (FP) PO SCH ×3 (06:31→21:44)
[2018-03-24] MEDS: BACITRACIN 15 GM TUBE TOPICAL OINTMENT TP SCH ×2 (10:16→21:45)
[2018-03-24] MEDS: PRENATAL VITAMINS W/ FOLIC ACID TABLET (FP) PO SCH (10:16)
[2018-03-24] MEDS: PANTOPRAZOLE 40 MG TABLET (FP) PO SCH (10:16)
[2018-03-24] MEDS: LIDOCAINE 5% TOPICAL PATCH TP SCH (10:16)
[2018-03-24] MEDS: IBUPROFEN 400 MG TABLET (FP) PO PRN ×2 (11:20→19:18)
[2018-03-24] MEDS: cloNIDine HCL 0.1 MG TABLET PO PRN (21:43)
[2018-03-24] MEDS: traZODone HCL 50 MG TABLET (FP) PO SCH (21:43)
[2018-03-24] MEDS: LIDOCAINE PATCH REMOVAL MC SCH (21:45)
[2018-03-24] MEDS: THIAMINE HCL 100 MG TABLET (FP) PO SCH (21:45)
[2018-03-25] MEDS: hydrOXYzine PAMOATE 50 MG CAPSULE (FP) PO SCH ×3 (06:42→21:35)
[2018-03-25] MEDS: CYCLOBENZAPRINE HCL 10 MG TABLET (FP) PO SCH ×3 (06:42→21:35)
[2018-03-25] MEDS: PRENATAL VITAMINS W/ FOLIC ACID TABLET (FP) PO SCH (09:59)
[2018-03-25] MEDS: LIDOCAINE 5% TOPICAL PATCH TP SCH (10:00)
[2018-03-25] MEDS: PANTOPRAZOLE 40 MG TABLET (FP) PO SCH (10:00)
[2018-03-25] MEDS: BACITRACIN 15 GM TUBE TOPICAL OINTMENT TP SCH ×2 (10:01→21:35)
[2018-03-25] MEDS: IBUPROFEN 400 MG TABLET (FP) PO PRN ×2 (10:02→18:44)
[2018-03-25] MEDS: cloNIDine HCL 0.1 MG TABLET PO PRN ×2 (10:02→21:35)
[2018-03-25] MEDS: traZODone HCL 50 MG TABLET (FP) PO SCH (21:35)
[2018-03-25] MEDS: THIAMINE HCL 100 MG TABLET (FP) PO SCH (21:35)
[2018-03-25] MEDS: LIDOCAINE PATCH REMOVAL MC SCH (21:36)
[2018-03-26] MEDS: hydrOXYzine PAMOATE 50 MG CAPSULE (FP) PO SCH ×3 (06:34→21:40)
[2018-03-26] MEDS: CYCLOBENZAPRINE HCL 10 MG TABLET (FP) PO SCH ×3 (06:34→21:41)
[2018-03-26] MEDS: cloNIDine HCL 0.1 MG TABLET PO PRN ×2 (10:11→21:41)
[2018-03-26] MEDS: BACITRACIN 15 GM TUBE TOPICAL OINTMENT TP SCH ×2 (10:11→21:42)
[2018-03-26] MEDS: LIDOCAINE 5% TOPICAL PATCH TP SCH (10:11)
[2018-03-26] MEDS: PANTOPRAZOLE 40 MG TABLET (FP) PO SCH (10:11)
[2018-03-26] MEDS: PRENATAL VITAMINS W/ FOLIC ACID TABLET (FP) PO SCH (10:11)
[2018-03-26] MEDS: traZODone HCL 50 MG TABLET (FP) PO SCH (21:41)
[2018-03-26] MEDS: THIAMINE HCL 100 MG TABLET (FP) PO SCH (21:41)
[2018-03-26] MEDS: LIDOCAINE PATCH REMOVAL MC SCH (21:42)
[2018-03-27] MEDS: CYCLOBENZAPRINE HCL 10 MG TABLET (FP) PO SCH ×3 (06:42→21:35)
[2018-03-27] MEDS: hydrOXYzine PAMOATE 50 MG CAPSULE (FP) PO SCH ×3 (06:43→21:35)
[2018-03-27] MEDS: LIDOCAINE 5% TOPICAL PATCH TP SCH (10:07)
[2018-03-27] MEDS: PRENATAL VITAMINS W/ FOLIC ACID TABLET (FP) PO SCH (10:07)
[2018-03-27] MEDS: PANTOPRAZOLE 40 MG TABLET (FP) PO SCH (10:07)
[2018-03-27] MEDS: BACITRACIN 15 GM TUBE TOPICAL OINTMENT TP SCH ×2 (10:07→21:36)
[2018-03-27] MEDS: IBUPROFEN 400 MG TABLET (FP) PO PRN (20:53)
[2018-03-27] MEDS: traZODone HCL 50 MG TABLET (FP) PO SCH (21:35)
[2018-03-27] MEDS: THIAMINE HCL 100 MG TABLET (FP) PO SCH (21:35)
[2018-03-27] MEDS: cloNIDine HCL 0.1 MG TABLET PO PRN (21:35)
[2018-03-27] MEDS: LIDOCAINE PATCH REMOVAL MC SCH (21:36)
[2018-03-28] MEDS: CYCLOBENZAPRINE HCL 10 MG TABLET (FP) PO SCH ×3 (06:23→21:39)
[2018-03-28] MEDS: hydrOXYzine PAMOATE 50 MG CAPSULE (FP) PO SCH ×3 (06:24→21:39)
[2018-03-28] MEDS: PRENATAL VITAMINS W/ FOLIC ACID TABLET (FP) PO SCH (10:02)
[2018-03-28] MEDS: PANTOPRAZOLE 40 MG TABLET (FP) PO SCH (10:02)
[2018-03-28] MEDS: LIDOCAINE 5% TOPICAL PATCH TP SCH (10:03)
[2018-03-28] MEDS: cloNIDine HCL 0.1 MG TABLET PO PRN ×2 (10:03→21:41)
[2018-03-28] MEDS: BACITRACIN 15 GM TUBE TOPICAL OINTMENT TP SCH ×2 (10:03→21:40)
[2018-03-28] MEDS: traZODone HCL 50 MG TABLET (FP) PO SCH (21:39)
[2018-03-28] MEDS: THIAMINE HCL 100 MG TABLET (FP) PO SCH (21:39)
[2018-03-28] MEDS: LIDOCAINE PATCH REMOVAL MC SCH (21:40)
[2018-03-29] MEDS: CYCLOBENZAPRINE HCL 10 MG TABLET (FP) PO SCH ×3 (06:51→21:29)
[2018-03-29] MEDS: hydrOXYzine PAMOATE 50 MG CAPSULE (FP) PO SCH ×3 (06:51→21:29)
[2018-03-29] MEDS: PRENATAL VITAMINS W/ FOLIC ACID TABLET (FP) PO SCH (10:05)
[2018-03-29] MEDS: LIDOCAINE 5% TOPICAL PATCH TP SCH (10:05)
[2018-03-29] MEDS: PANTOPRAZOLE 40 MG TABLET (FP) PO SCH (10:05)
[2018-03-29] MEDS: BACITRACIN 15 GM TUBE TOPICAL OINTMENT TP SCH ×2 (10:07→21:29)
[2018-03-29] MEDS: cloNIDine HCL 0.1 MG TABLET PO PRN ×2 (10:13→21:30)
[2018-03-29] MEDS: IBUPROFEN 400 MG TABLET (FP) PO PRN (19:54)
[2018-03-29] MEDS: THIAMINE HCL 100 MG TABLET (FP) PO SCH (21:29)
[2018-03-29] MEDS: traZODone HCL 50 MG TABLET (FP) PO SCH (21:29)
[2018-03-29] MEDS: LIDOCAINE PATCH REMOVAL MC SCH (21:29)
[2018-03-30] MEDS: CYCLOBENZAPRINE HCL 10 MG TABLET (FP) PO SCH ×3 (06:16→21:49)
[2018-03-30] MEDS: hydrOXYzine PAMOATE 50 MG CAPSULE (FP) PO SCH ×3 (06:16→21:50)
[2018-03-30] MEDS: LIDOCAINE 5% TOPICAL PATCH TP SCH (10:28)
[2018-03-30] MEDS: BACITRACIN 15 GM TUBE TOPICAL OINTMENT TP SCH ×2 (10:28→22:25)
[2018-03-30] MEDS: PANTOPRAZOLE 40 MG TABLET (FP) PO SCH (10:28)
[2018-03-30] MEDS: PRENATAL VITAMINS W/ FOLIC ACID TABLET (FP) PO SCH (10:28)
[2018-03-30] MEDS: ACETAMINOPHEN 325 MG TABLET (FP) PO PRN ×3 (10:29→19:37)
[2018-03-30] MEDS: THIAMINE HCL 100 MG TABLET (FP) PO SCH (21:49)
[2018-03-30] MEDS: traZODone HCL 50 MG TABLET (FP) PO SCH (21:49)
[2018-03-30] MEDS: LIDOCAINE PATCH REMOVAL MC SCH (22:33)
[2018-03-31] MEDS: hydrOXYzine PAMOATE 50 MG CAPSULE (FP) PO SCH ×3 (06:52→21:48)
[2018-03-31] MEDS: CYCLOBENZAPRINE HCL 10 MG TABLET (FP) PO SCH ×3 (06:52→21:48)
[2018-03-31] MEDS: PRENATAL VITAMINS W/ FOLIC ACID TABLET (FP) PO SCH (10:18)
[2018-03-31] MEDS: LIDOCAINE 5% TOPICAL PATCH TP SCH (10:18)
[2018-03-31] MEDS: BACITRACIN 15 GM TUBE TOPICAL OINTMENT TP SCH ×2 (10:18→21:49)
[2018-03-31] MEDS: PANTOPRAZOLE 40 MG TABLET (FP) PO SCH (10:18)
--- NOTE | 2018-03-31 14:30 | PN ---
Psychiatric Progress Note Vital Signs: Vital Signs Period Temp Pulse Resp BP Sys/Powers Pulse Ox Last 24 Hr 97.9 F-98.3 F 75-96 -18 111-123/71-78 Date of Session: 03/31/18 Chief Complaint:: "I feel down and i can't sleep. HPI: Patient admitted to for opioid dependence. ROS: Hepatitis C, positive PPD and bronchial asthma. Current Medications: Active Medications Generic Name Dose Route Start Last Admin Trade Name Freq PRN Reason Stop Dose Admin Acetaminophen 650 mg 03/08/18 13:31 03/30/18 19:37 Tylenol - PO 650 mg Q4H PRN Administration FEVER Al Hydroxide/Mg Hydroxide 30 ml 03/08/18 13:31 03/13/18 17:28 Mylanta Oral Suspension - PO 30 ml Q6H PRN Administration DYSPEPSIA Albuterol Sulfate 0 puff 03/12/18 14:27 03/13/18 13:08 Ventolin Hfa Inhaler - IH 1 puff Q4H PRN Administration SHORT OF BREATH/WHEEZING Bacitracin 1 applic 03/15/18 10:00 03/31/18 10:18 Bacitracin - TP Not Given BID OSIEL Clonidine 0.1 mg 03/19/18 21:37 03/29/18 21:30 Catapres - PO 0.1 mg BID PRN Administration WITHDRAWAL(CONT SUBST) Cyclobenzaprine HCl 10 mg 03/17/18 14:00 03/31/18 13:10 Flexeril - PO 10 mg TID OSIEL Administration Eucalyptus/Menthol/Phenol/Sorbitol 1 each 03/08/18 13:31 Cepastat Lozenge - MM Q4H PRN SORE THROAT Guaifenesin 10 ml 03/08/18 13:31 Robitussin Dm - PO Q6H PRN COUGH Hydroxyzine Pamoate 100 mg 03/21/18 22:00 03/31/18 13:10 Vistaril - PO 100 mg TID OSIEL Administration Ibuprofen 400 mg 03/08/18 13:31 03/29/18 19:54 Motrin - PO 400 mg Q6H PRN Administration Pain Level 4-6 Lidocaine 1 patch 03/16/18 10:00 03/31/18 10:18 Lidoderm Patch - TP 1 patch DAILY OSIEL Administration Loperamide HCl 4 mg 03/08/18 13:31 Imodium - PO Q6H PRN DIARRHEA Magnesium Citrate 300 ml 03/08/18 13:31 Citroma - PO Q48H PRN CONSTIPATION Magnesium Hydroxide 30 ml 03/08/18 13:31 Milk Of Magnesia - PO DAILY PRN CONSTIPATION Melatonin 5 mg 03/08/18 22:00 Melatonin PO HS PRN INSOMNIA Miscellaneous 1 each 03/15/18 22:00 03/30/18 22:33 Lidoderm Patch Removal MC Not Given DAILY@2200 OSIEL Nicotine Polacrilex 2 mg 03/09/18 22:11 03/10/18 21:33 Nicorette Gum - BC 2 mg Q2H PRN Administration NICOTINE REPLACEMENT RX Ondansetron HCl 8 mg 03/09/18 17:46 03/12/18 01:51 Zofran Odt - SL 8 mg Q8H PRN Administration NAUSEA AND/OR VOMITING Pantoprazole Sodium 40 mg 03/11/18 15:30 03/31/18 10:18 Protonix - PO 40 mg DAILY OSIEL Administration Multivit/Folic Acid/Iron 1 tab 03/09/18 10:00 03/31/18 10:18 Vitamins (Sjr) - PO 1 tab DAILY OSIEL Administration Pseudoephedrine/Triprolidine 1 combo 03/08/18 13:31 Actifed - PO TID PRN NASAL CONGESTION Thiamine HCl 100 mg 03/08/18 22:00 03/30/18 21:49 Vitamin B1 - PO 100 mg HS OSIEL Administration Trazodone HCl 200 mg 03/31/18 22:00 Desyrel - PO HS OSIEL Trimethobenzamide HCl 200 mg 03/11/18 15:09 Tigan Injection - IM Q8H PRN NAUSEA AND/OR VOMITING Medication(s) Change(s): Yes. Patient is receiving trazodone 150mg HS. Will increase trazodone to 200mg. Current Side Effect: No Lab tests ordered: No Lab tests reviewed: Yes Provider note:: Patient reports feeling "down" and hopeless due to his circumstances of not having a place to live. He would like to continue treatment at an [facility] but was told that he would need to speak to the counselor concerning that request. Patient also reports difficulty sleeping. States he is sleeping 4-5 hours per night. Chart reviewed and noticed patient has not accepted melatonin 5mg for insomnia. Trazodone to be increased to 200mg to help with depressive symptoms and insomnia. Patient also encouraged to accept melatonin 5mg for insomnia. Psychoeducation and sleep hygiene discussed. Verbal consent given. Patient satisifed and receptive to feedback. Total face to face time:: 25 Mental Status Exam - Mental Status Exam Alert and Oriented to: Time, Place, Person Cognitive Function: Good Patient Appearance: Well Groomed Mood: Sad, Euthymic Affect: Mood Congruent Patient Behavior: Cooperative Speech Pattern: Appropriate (polish speaking) Voice Loudness: Normal Thought Process: Intact, Goal Oriented Thought Disorder: Not Present Hallucinations: Denies Suicidal Ideation: Denies Homicidal Ideation: Denies Insight/Judgement: Poor Sleep: Poorly Appetite: Fair Muscle strength/Tone: Normal Gait/Station: Normal Psychiatric Treatment Plan - Problem List (1) Cocaine dependence Current Visit: Yes Qualifiers: (2) Opioid dependence Current Visit: Yes (3) Substance induced mood disorder Current Visit: Yes (4) Insomnia Current Visit: Yes (5) Nicotine dependence Current Visit: Yes Qualifiers:
[2018-03-31] MEDS: THIAMINE HCL 100 MG TABLET (FP) PO SCH (21:48)
[2018-03-31] MEDS: traZODone HCL 100 MG TABLET (FP) PO SCH (21:48)
[2018-03-31] MEDS: LIDOCAINE PATCH REMOVAL MC SCH (21:49)
[2018-03-31] MEDS: MELATONIN 5 MG TABLETS PO PRN (21:49)
[2018-04-01] MEDS: CYCLOBENZAPRINE HCL 10 MG TABLET (FP) PO SCH ×3 (06:23→21:39)
[2018-04-01] MEDS: hydrOXYzine PAMOATE 50 MG CAPSULE (FP) PO SCH ×3 (06:24→21:39)
[2018-04-01] MEDS: PANTOPRAZOLE 40 MG TABLET (FP) PO SCH (10:19)
[2018-04-01] MEDS: PRENATAL VITAMINS W/ FOLIC ACID TABLET (FP) PO SCH (10:19)
[2018-04-01] MEDS: LIDOCAINE 5% TOPICAL PATCH TP SCH (10:19)
[2018-04-01] MEDS: BACITRACIN 15 GM TUBE TOPICAL OINTMENT TP SCH ×2 (10:20→21:41)
[2018-04-01] MEDS: cloNIDine HCL 0.1 MG TABLET PO PRN (10:22)
[2018-04-01] MEDS: ACETAMINOPHEN 325 MG TABLET (FP) PO PRN ×2 (10:22→19:07)
[2018-04-01] MEDS: MELATONIN 5 MG TABLETS PO PRN (21:39)
[2018-04-01] MEDS: traZODone HCL 100 MG TABLET (FP) PO SCH (21:39)
[2018-04-01] MEDS: THIAMINE HCL 100 MG TABLET (FP) PO SCH (21:39)
[2018-04-01] MEDS: LIDOCAINE PATCH REMOVAL MC SCH (21:40)
[2018-04-02] MEDS: hydrOXYzine PAMOATE 50 MG CAPSULE (FP) PO SCH ×3 (07:02→21:34)
[2018-04-02] MEDS: CYCLOBENZAPRINE HCL 10 MG TABLET (FP) PO SCH ×3 (07:02→21:34)
[2018-04-02] MEDS: PRENATAL VITAMINS W/ FOLIC ACID TABLET (FP) PO SCH (10:26)
[2018-04-02] MEDS: PANTOPRAZOLE 40 MG TABLET (FP) PO SCH (10:26)
[2018-04-02] MEDS: LIDOCAINE 5% TOPICAL PATCH TP SCH (10:26)
[2018-04-02] MEDS: BACITRACIN 15 GM TUBE TOPICAL OINTMENT TP SCH ×2 (10:26→21:34)
[2018-04-02] MEDS: cloNIDine HCL 0.1 MG TABLET PO PRN ×2 (10:27→21:34)
[2018-04-02] MEDS: ACETAMINOPHEN 325 MG TABLET (FP) PO PRN (10:27)
[2018-04-02] MEDS: LIDOCAINE PATCH REMOVAL MC SCH (21:34)
[2018-04-02] MEDS: THIAMINE HCL 100 MG TABLET (FP) PO SCH (21:34)
[2018-04-02] MEDS: traZODone HCL 100 MG TABLET (FP) PO SCH (21:34)
[2018-04-02] MEDS: MELATONIN 5 MG TABLETS PO PRN (21:35)
[2018-04-03] MEDS: CYCLOBENZAPRINE HCL 10 MG TABLET (FP) PO SCH ×3 (06:45→22:01)
[2018-04-03] MEDS: hydrOXYzine PAMOATE 50 MG CAPSULE (FP) PO SCH ×3 (06:45→22:30)
[2018-04-03] MEDS: ACETAMINOPHEN 325 MG TABLET (FP) PO PRN (09:56)
[2018-04-03] MEDS: PANTOPRAZOLE 40 MG TABLET (FP) PO SCH (09:57)
[2018-04-03] MEDS: PRENATAL VITAMINS W/ FOLIC ACID TABLET (FP) PO SCH (09:57)
[2018-04-03] MEDS: BACITRACIN 15 GM TUBE TOPICAL OINTMENT TP SCH ×2 (09:57→22:35)
[2018-04-03] MEDS: LIDOCAINE 5% TOPICAL PATCH TP SCH (09:57)
[2018-04-03] MEDS: THIAMINE HCL 100 MG TABLET (FP) PO SCH (22:00)
[2018-04-03] MEDS: traZODone HCL 100 MG TABLET (FP) PO SCH (22:00)
[2018-04-03] MEDS: LIDOCAINE PATCH REMOVAL MC SCH (22:35)
[2018-04-04] MEDS: hydrOXYzine PAMOATE 50 MG CAPSULE (FP) PO SCH ×3 (06:41→21:54)
[2018-04-04] MEDS: CYCLOBENZAPRINE HCL 10 MG TABLET (FP) PO SCH ×3 (06:41→21:54)
[2018-04-04] MEDS: PANTOPRAZOLE 40 MG TABLET (FP) PO SCH (10:49)
[2018-04-04] MEDS: PRENATAL VITAMINS W/ FOLIC ACID TABLET (FP) PO SCH (10:49)
[2018-04-04] MEDS: LIDOCAINE 5% TOPICAL PATCH TP SCH (10:49)
[2018-04-04] MEDS: BACITRACIN 15 GM TUBE TOPICAL OINTMENT TP SCH (10:49)
--- NOTE | 2018-04-04 11:02 | PN ---
Psychiatric Progress Note Vital Signs: Vital Signs Period Temp Pulse Resp BP Sys/Powers Pulse Ox Last 24 Hr 97.7 F 79-81 16-18 110-122/67-88 Date of Session: 04/04/18 Chief Complaint:: Discharge Note HPI: Patient addressing Opioid and cocaine Dependence comorbid with Nicotine Dependence and Substance-Induced Mood Disorder ROS: Asthma was medically managed Current Medications: Active Medications Generic Name Dose Route Start Last Admin Trade Name Freq PRN Reason Stop Dose Admin Acetaminophen 650 mg 03/08/18 13:31 04/03/18 09:56 Tylenol - PO 650 mg Q4H PRN Administration FEVER Al Hydroxide/Mg Hydroxide 30 ml 03/08/18 13:31 03/13/18 17:28 Mylanta Oral Suspension - PO 30 ml Q6H PRN Administration DYSPEPSIA Albuterol Sulfate 0 puff 03/12/18 14:27 03/13/18 13:08 Ventolin Hfa Inhaler - IH 1 puff Q4H PRN Administration SHORT OF BREATH/WHEEZING Bacitracin 1 applic 03/15/18 10:00 04/04/18 10:49 Bacitracin - TP Not Given BID [facility] Clonidine 0.1 mg 03/19/18 21:37 04/02/18 21:34 Catapres - PO 0.1 mg BID PRN Administration WITHDRAWAL(CONT SUBST) Cyclobenzaprine HCl 10 mg 03/17/18 14:00 04/04/18 06:41 Flexeril - PO Not Given TID [facility] Eucalyptus/Menthol/Phenol/Sorbitol 1 each 03/08/18 13:31 Cepastat Lozenge - MM Q4H PRN SORE THROAT Guaifenesin 10 ml 03/08/18 13:31 Robitussin Dm - PO Q6H PRN COUGH Hydroxyzine Pamoate 100 mg 03/21/18 22:00 04/04/18 06:41 Vistaril - PO Not Given TID [facility] Ibuprofen 400 mg 03/08/18 13:31 03/29/18 19:54 Motrin - PO 400 mg Q6H PRN Administration Pain Level 4-6 Lidocaine 1 patch 03/16/18 10:00 04/04/18 10:49 Lidoderm Patch - TP Not Given DAILY [facility] Loperamide HCl 4 mg 03/08/18 13:31 Imodium - PO Q6H PRN DIARRHEA Magnesium Citrate 300 ml 03/08/18 13:31 Citroma - PO Q48H PRN CONSTIPATION Magnesium Hydroxide 30 ml 03/08/18 13:31 Milk Of Magnesia - PO DAILY PRN CONSTIPATION Melatonin 5 mg 03/08/18 22:00 04/02/18 21:35 Melatonin PO 5 mg HS PRN Administration INSOMNIA Miscellaneous 1 each 03/15/18 22:00 04/03/18 22:35 Lidoderm Patch Removal MC Not Given DAILY@2200 OSIEL Nicotine Polacrilex 2 mg 03/09/18 22:11 03/10/18 21:33 Nicorette Gum - BC 2 mg Q2H PRN Administration NICOTINE REPLACEMENT RX Ondansetron HCl 8 mg 03/09/18 17:46 03/12/18 01:51 Zofran Odt - SL 8 mg Q8H PRN Administration NAUSEA AND/OR VOMITING Pantoprazole Sodium 40 mg 03/11/18 15:30 04/04/18 10:49 Protonix - PO Not Given DAILY OSIEL Multivit/Folic Acid/Iron 1 tab 03/09/18 10:00 04/04/18 10:49 Vitamins (Sjr) - PO Not Given DAILY OSIEL Pseudoephedrine/Triprolidine 1 combo 03/08/18 13:31 Actifed - PO TID PRN NASAL CONGESTION Thiamine HCl 100 mg 03/08/18 22:00 04/03/18 22:00 Vitamin B1 - PO 100 mg HS OSIEL Administration Trazodone HCl 200 mg 03/31/18 22:00 04/03/18 22:00 Desyrel - PO 200 mg HS OSIEL Administration Trimethobenzamide HCl 200 mg 03/11/18 15:09 Tigan Injection - IM Q8H PRN NAUSEA AND/OR VOMITING Current Side Effect: No Lab tests ordered: Yes Lab tests reviewed: Yes Provider note:: Patient will complete this program on 04/05/18. 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 Told chief writer that from his participation in this program, he has learned to make meeting and get a sponsor. He responded well to Trazadone 200 mg o HS and Vistaril 100 mg po TID. Scripts for these medications will be electronically transmitted to [facility] at [address] [place] [address]. he is stable for discharge on 04/05/18 Total face to face time:: 35 Mental Status Exam - Mental Status Exam Alert and Oriented to: Time, Place, Person Cognitive Function: Fair Patient Appearance: Well Groomed Mood: Hopeful, Happy Affect: Appropriate Patient Behavior: Cooperative Speech Pattern: Clear Voice Loudness: Normal Thought Process: Intact Thought Disorder: Not Present Hallucinations: Denies Suicidal Ideation: Denies Homicidal Ideation: Denies Insight/Judgement: Fair Sleep: Fair Appetite: Fair Muscle strength/Tone: Normal Gait/Station: Normal Psychiatric Treatment Plan - Problem List (1) Opioid dependence Current Visit: Yes (2) Cocaine dependence Current Visit: Yes Qualifiers: (3) Nicotine dependence Current Visit: Yes Qualifiers: (4) Drug-induced mood disorder Current Visit: No (5) Asthma Current Visit: Yes Initial treatment plan: Patient will be discharged tomorrow and referred to [facility] for intermediate residential treatment
[2018-04-04] MEDS: MAG HYDROX/AL HYDROX/SIMETH 30 ML UNIT-DOSE CUP PO PRN ×2 (15:54→23:08)
--- NOTE | 2018-04-04 21:50 | PN ---
S Progress Note (SOAP) Subjective: States that something fell from ceiling into (L) eye. States feels like there is something in (L) eye. Denies visual changes. States had trauma to left eye a few weeks ago and some stitches were removed while in detox. Refused to go to ER. States eye felt better after flush and suture removal. No further c/o FB sensation. Objective: A&O x 3. (L) sclera w/o increased erythema. No foreign body seen in (L) eye. Area of erythema and ecchimosis noted (L) eye periorbital area. (L) upper outer eyelid w/ small suture insitu. B/P: 125/64; HR ; 78; T ; 97.3; R ; 18. No signs of particles or debris on, or falling from, ceiling. Assessment: Substance use disorder early remission. Hx Trauma (L) eye area Suture insitu (L) upper eyelid R/o Foreign Body/Corneal abrasion. Plan: Patient refused transport to [facility]. Eye flushed x 3 w/ 10 ml each normal saline. Suture removal (L) upper eye lid. Eye patch (L) upper eye lid x 12 hours. F/u in am.
[2018-04-04] MEDS: LIDOCAINE PATCH REMOVAL MC SCH (21:53)
[2018-04-04] MEDS: THIAMINE HCL 100 MG TABLET (FP) PO SCH (21:53)
[2018-04-04] MEDS: BACITRACIN 0.9 GM PACKET TP SCH (21:53)
[2018-04-04] MEDS: traZODone HCL 100 MG TABLET (FP) PO SCH (21:54)
[2018-04-05] MEDS: hydrOXYzine PAMOATE 50 MG CAPSULE (FP) PO SCH (06:58)
[2018-04-05] MEDS: CYCLOBENZAPRINE HCL 10 MG TABLET (FP) PO SCH (06:58)
[2018-04-05 07:15] VITALS: BP 112/60; PULSE 85; TEMP 97.9
--- NOTE | 2018-04-05 09:30 | PN ---
[facility] Progress Note Note: PT COMPLETED REHAB AND DISCHARGED TODAY. ALERT O X 3. NAD. PT REPORTS HE GOES TO [facility] FOR MEDICAL MANAGEMENT NEEDED. Vital Signs - 24 hr 04/04/18 04/04/18 04/05/18 10:00 21:00 00:30 Temperature Pulse Rate 87 80 Respiratory 20 18 18 Rate Blood Pressure 118/64 122/96 04/05/18 04/05/18 03:30 07:15 Temperature 97.9 F Pulse Rate 85 Respiratory 18 16 Rate Blood Pressure 112/60 PLAN:FOLLOW UP WITH MEDICAL CARE/PCP AT [facility] WITHIN 1-2 WEEKS AFTER DISCHARGE FROM REHAB.
[2018-04-05] MEDS: PRENATAL VITAMINS W/ FOLIC ACID TABLET (FP) PO SCH (10:37)
[2018-04-05] MEDS: LIDOCAINE 5% TOPICAL PATCH TP SCH (10:37)
[2018-04-05] MEDS: BACITRACIN 0.9 GM PACKET TP SCH (10:37)
[2018-04-05] MEDS: PANTOPRAZOLE 40 MG TABLET (FP) PO SCH (10:37)
== END 2018-04-05 10:30 | disposition other institution (70) | DRG 772 ==
LOC: YASAS 12:36 → Y5N 12:38
PROVIDERS: ADMIT Psychiatry & Neurology Psychiatry; ATTEND Psychiatry & Neurology Psychiatry
PROC: HZ42ZZZ Group Counseling for Substance Abuse Treatment, Cognitive-Behavioral (ICD-10-PCS; principal; 2018-03-08)
DX: F11.20 Opioid dependence, uncomplicated (principal); F14.20 Cocaine dependence, uncomplicated; F17.210 Nicotine dependence, cigarettes, uncomplicated; F19.24 Other psychoactive substance dependence with psychoactive substance-induced mood disorder; J45.909 Unspecified asthma, uncomplicated; K21.9 Gastro-esophageal reflux disease without esophagitis; B18.2 Chronic viral hepatitis C; R76.11 Nonspecific reaction to tuberculin skin test without active tuberculosis; R11.2 Nausea with vomiting, unspecified; R52 Pain, unspecified; Z91.5 Personal history of self-harm; H57.9 Unspecified disorder of eye and adnexa; Z48.02 Encounter for removal of sutures
CPT/HCPCS: J0735; Q0162

== ENCOUNTER 2018-04-30 08:49 | Inpatient (IN) | payer OTHER ==
[2018-04-30 09:08] VITALS: BMI 23.8
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
[2018-04-30] MEDS ORDERED: guaiFENesin/D-METHORPHAN HB 10 ML UNIT-DOSE CUPS PO PRN (09:30)
[2018-04-30] MEDS ORDERED: hydrOXYzine PAMOATE 25 MG CAPSULE (FP) PO PRN (09:30)
[2018-04-30] MEDS ORDERED: IBUPROFEN 400 MG TABLET (FP) PO PRN (09:30)
[2018-04-30] MEDS ORDERED: MAGNESIUM CITRATE 300 ML BOTTLE PO PRN (09:30)
[2018-04-30] MEDS ORDERED: MAGNESIUM HYDROX 2400MG/30ML ORAL SUSPENSION 30 ML CUP PO PRN (09:30)
[2018-04-30] MEDS ORDERED: MENTHOL/PHENOL 1 EACH UD MM PRN (09:30)
[2018-04-30] MEDS ORDERED: NICOTINE POLACRILEX 2 MG GUM BUC PRN (09:30)
[2018-04-30] MEDS ORDERED: P-EPHED 60MG/TRIPROLIDI 2.5MG TABLET PO PRN (09:30)
[2018-04-30] MEDS ORDERED: ALBUTEROL SO4 8 GM HFA INHALER IH PRN (10:02)
[2018-04-30] MEDS: PRENATAL VITAMINS W/ FOLIC ACID TABLET (FP) PO SCH (10:38)
[2018-04-30] MEDS: NICOTINE 21 MG/24 HOURS TOPICAL PATCH TD SCH (10:38)
[2018-04-30] MEDS: diazePAM 5 MG TABLET PO PRN (10:38)
[2018-04-30] MEDS ORDERED: METHADONE HCL 10 MG TABLET (FOR DETOX USE ONLY) PO ONE ×2 (10:45→23:00)
[2018-04-30] MEDS ORDERED: MELATONIN 5 MG TABLETS PO PRN (22:00)
[2018-04-30] MEDS: CYCLOBENZAPRINE HCL 10 MG TABLET (FP) PO PRN (22:26)
[2018-04-30] MEDS: THIAMINE HCL 100 MG TABLET (FP) PO SCH (22:27)
[2018-04-30] MEDS: cloNIDine HCL 0.1 MG TABLET PO SCH (22:28)
[2018-04-30 22:45] LABS: URINE APPEARANCE TURBID; URINE BILIRUBIN NEGATIVE (<2.0 mg/dL); URINE COLOR YELLOW; URINE GLUCOSE (UA) NEGATIVE (NEGATIVE); URINE KETONE NEGATIVE (NEGATIVE); URINE LEUK ESTERASE NEGATIVE (NEGATIVE); URINE NITRITE NEGATIVE (NEGATIVE); URINE PROTEIN NEGATIVE (NEGATIVE); URINE UROBILINOGEN NEGATIVE mg/dL (0.2-1.0)
[2018-05-01] MEDS ORDERED: METHADONE HCL 10 MG TABLET (FOR DETOX USE ONLY) PO ONE (10:00)
[2018-05-01] MEDS: cloNIDine HCL 0.1 MG TABLET PO SCH ×2 (10:28→22:21)
[2018-05-01] MEDS: PRENATAL VITAMINS W/ FOLIC ACID TABLET (FP) PO SCH (10:28)
[2018-05-01] MEDS: NICOTINE 21 MG/24 HOURS TOPICAL PATCH TD SCH (10:28)
[2018-05-01 10:55] LABS: ALBUMIN 3.3 g/dl (3.4-5.0); ALK PHOS 66 U/L (45-117); ANION GAP 9 MMOL/L (8-16); BILIRUBIN,TOTAL 0.3 mg/dL (0.2-1); BLOOD UREA NITROGEN 23 mg/dL (7-18); CALCIUM 8.6 mg/dL (8.5-10.1); CHLORIDE 100 mmol/L (98-107); CO2 28 mmol/L (21-32); CREATININE 1.2 mg/dL (0.55-1.3); GLUCOSE,RANDOM 119 mg/dL (74-106); POTASSIUM 4.1 mmol/L (3.5-5.1); SGOT/AST 46 U/L (15-37); SGPT/ALT 47 U/L (13-61); SODIUM 137 mmol/L (136-145); TOT PROT 7.6 g/dl (6.4-8.2)
[2018-05-01 11:44] LABS: HEMATOCRIT 34.3 % (35.4-49); MCH 23.1 pg (25.7-33.7); MEAN CELL VOLUME 72.3 fl (80-96); MEAN PLT VOLUME 7.9 fl (7.5-11.1); PLATELET COUNT 278 K/MM3 (134-434); RBC 4.74 M/mm3 (4.00-5.60); RDW 16.8 % (11.9-15.9); WHITE BLOOD COUNT 11.9 K/mm3 (4.0-10.0)
--- NOTE | 2018-05-01 16:51 | PN ---
BHS COWS - Scale Resting Pulse: 0= [place] 80 or Below Sweatin=Flushed/Facial Moisture Restless Observation: 3= Extraneous Movement Pupil Size: 0= Normal to Room Light Bone or Joint Aches: 2= Severe Diffuse Aches Runny Nose/ Eye Tearin= Runny Nose/Eyes GI Upset > 30mins: 3= Vomiting/Diarrhea Tremor Observation of Outstretched Hands: 2= Slight Tremor Visible Yawning Observation: 1= 1-2x During Session Anxiety or Irritability: 2=Irritable/Anxious Goose Flesh Skin: 0=Smooth Skin COWS Score: 17 S Progress Note (SOAP) Subjective: Body ache, chills, sweating, tremor, nausea, interrupted sleep Objective: 05/01/18 16:48 Last Vital Signs Temp Pulse Resp BP Pulse Ox 99.2 F 74 16 113/63 05/01/18 13:54 05/01/18 13:54 05/01/18 13:54 05/01/18 13:54 Laboratory Tests 04/30/18 05/01/18 05/01/18 22:30 05:35 05:35 WBC 11.9 H RBC 4.74 Hgb 11.0 L Hct 34.3 L MCV 72.3 L MCH 23.1 L MCHC 32.0 RDW 16.8 H Plt Count 278 MPV 7.9 Sodium 137 Potassium 4.1 Chloride 100 Carbon Dioxide 28 Anion Gap 9 BUN 23 H Creatinine 1.2 Creat Clearance w eGFR > 60 Random Glucose 119 H Calcium 8.6 Total Bilirubin 0.3 AST 46 H ALT 47 Alkaline Phosphatase 66 Total Protein 7.6 Albumin 3.3 L Urine Color Yellow Urine Appearance Turbid Urine pH 5.0 Ur Specific [place] 1.025 Urine Protein Negative Urine Glucose (UA) Negative Urine Ketones Negative Urine Blood Negative Urine Nitrite Negative Urine Bilirubin Negative Urine Urobilinogen Negative Ur Leukocyte Esterase Negative RPR Titer 05/01/18 05:35 WBC RBC Hgb Hct MCV MCH MCHC RDW Plt Count MPV Sodium Potassium Chloride Carbon Dioxide Anion Gap BUN Creatinine Creat Clearance w eGFR Random Glucose Calcium Total Bilirubin AST ALT Alkaline Phosphatase Total Protein Albumin Urine Color Urine Appearance Urine pH Ur Specific [place] Urine Protein Urine Glucose (UA) Urine Ketones Urine Blood Urine Nitrite Urine Bilirubin Urine Urobilinogen Ur Leukocyte Esterase RPR Titer Nonreactive Labs reviewed: wbc 11.9, anemia noted, bun 23 Assessment: 05/01/18 16:49 Withdrawal symptoms Noted with leukocytosis, anemia and azotemia Plan: Continue detox Leukocytosis: asymptomatic, repeat cbc Anemia: eat more green leafy vegetables, follow up with PCP for monitoring Azotemia: encouraged PO water intake for hydration
[2018-05-01] MEDS: diazePAM 5 MG TABLET PO PRN (17:24)
[2018-05-01] MEDS: MAG HYDROX/AL HYDROX/SIMETH 30 ML UNIT-DOSE CUP PO PRN (19:28)
[2018-05-01] MEDS: CYCLOBENZAPRINE HCL 10 MG TABLET (FP) PO PRN (22:21)
[2018-05-01] MEDS: THIAMINE HCL 100 MG TABLET (FP) PO SCH (22:21)
[2018-05-01] MEDS: LOPERAMIDE HCL 2 MG CAPSULE PO PRN (22:23)
[2018-05-02] MEDS: CYCLOBENZAPRINE HCL 10 MG TABLET (FP) PO PRN ×2 (06:42→22:16)
[2018-05-02] MEDS: ACETAMINOPHEN 325 MG TABLET (FP) PO PRN (06:43)
[2018-05-02] MEDS: diazePAM 5 MG TABLET PO PRN ×2 (08:46→22:17)
[2018-05-02] MEDS: LOPERAMIDE HCL 2 MG CAPSULE PO PRN ×2 (09:46→22:58)
[2018-05-02] MEDS: NICOTINE 21 MG/24 HOURS TOPICAL PATCH TD SCH (09:46)
[2018-05-02] MEDS: PRENATAL VITAMINS W/ FOLIC ACID TABLET (FP) PO SCH (09:46)
[2018-05-02] MEDS: cloNIDine HCL 0.1 MG TABLET PO SCH ×2 (09:46→22:16)
[2018-05-02] MEDS ORDERED: METHADONE HCL 5 MG TABLET (FOR DETOX USE ONLY) PO ONE (10:00)
[2018-05-02] MEDS: MAG HYDROX/AL HYDROX/SIMETH 30 ML UNIT-DOSE CUP PO PRN (12:34)
--- NOTE | 2018-05-02 12:42 | PN ---
BHS COWS - Scale Resting Pulse: 0= [place] 80 or Below Sweatin=Flushed/Facial Moisture Restless Observation: 1= Difficult to Sit Still Pupil Size: 0= Normal to Room Light Bone or Joint Aches: 2= Severe Diffuse Aches Runny Nose/ Eye Tearin= Nasal Congestion GI Upset > 30mins: 3= Vomiting/Diarrhea Tremor Observation of Outstretched Hands: 1= Tremor [place], Not Seen Yawning Observation: 1= 1-2x During Session Anxiety or Irritability: 1=Feels Anxious/Irritable Goose Flesh Skin: 0=Smooth Skin COWS Score: 12 S Progress Note (SOAP) Subjective: HEADACHE SWEATS ABD PAIN VOMITING/DIARRHEA Objective: 05/02/18 12:40 SITTING IN DAY ROOM A & O X 3 MAKING COMPLETE UNLABORED SENTENCES Vital Signs Temperature 97.2 F L 05/02/18 09:09 Pulse Rate 64 05/02/18 09:09 Respiratory Rate 18 05/02/18 09:09 Blood Pressure 101/75 05/02/18 09:09 O2 Sat by Pulse Oximetry (%) Assessment: 05/02/18 12:41 WITHDRAWAL SX Plan: CONTINUE DETOX PRN TYLENOL FOR HEADACHE ONGOING MONITORING
[2018-05-02] MEDS: RANITIDINE HCL 150 MG TABLET (FP) PO SCH (14:17)
[2018-05-02] MEDS: THIAMINE HCL 100 MG TABLET (FP) PO SCH (22:16)
[2018-05-03] MEDS: diazePAM 5 MG TABLET PO PRN (02:17)
[2018-05-03] MEDS: ACETAMINOPHEN 325 MG TABLET (FP) PO PRN (06:49)
[2018-05-03] MEDS ORDERED: TRIMETHOBENZAMIDE HCL 200MG/2ML INJ IM PRN (07:25)
[2018-05-03] MEDS ORDERED: METHADONE HCL 5 MG TABLET (FOR DETOX USE ONLY) PO ONE (10:00)
[2018-05-03] MEDS: cloNIDine HCL 0.1 MG TABLET PO SCH ×2 (10:30→22:18)
[2018-05-03] MEDS: RANITIDINE HCL 150 MG TABLET (FP) PO SCH (10:30)
[2018-05-03] MEDS: PRENATAL VITAMINS W/ FOLIC ACID TABLET (FP) PO SCH (10:30)
[2018-05-03] MEDS: NICOTINE 21 MG/24 HOURS TOPICAL PATCH TD SCH (10:31)
--- NOTE | 2018-05-03 16:17 | PN ---
BHS Progress Note (SOAP) Subjective: N/V/D, sweating, interrupted sleep Objective: 05/03/18 16:16 Last Vital Signs Temp Pulse Resp BP Pulse Ox 97.8 F 67 18 101/67 05/03/18 13:18 05/03/18 13:18 05/03/18 13:18 05/03/18 13:18 Laboratory Tests 04/30/18 05/01/18 05/01/18 22:30 05:35 05:35 WBC 11.9 H RBC 4.74 Hgb 11.0 L Hct 34.3 L MCV 72.3 L MCH 23.1 L MCHC 32.0 RDW 16.8 H Plt Count 278 MPV 7.9 Sodium 137 Potassium 4.1 Chloride 100 Carbon Dioxide 28 Anion Gap 9 BUN 23 H Creatinine 1.2 Creat Clearance w eGFR > 60 Random Glucose 119 H Calcium 8.6 Total Bilirubin 0.3 AST 46 H ALT 47 Alkaline Phosphatase 66 Total Protein 7.6 Albumin 3.3 L Urine Color Yellow Urine Appearance Turbid Urine pH 5.0 Ur Specific [place] 1.025 Urine Protein Negative Urine Glucose (UA) Negative Urine Ketones Negative Urine Blood Negative Urine Nitrite Negative Urine Bilirubin Negative Urine Urobilinogen Negative Ur Leukocyte Esterase Negative RPR Titer 05/01/18 05:35 WBC RBC Hgb Hct MCV MCH MCHC RDW Plt Count MPV Sodium Potassium Chloride Carbon Dioxide Anion Gap BUN Creatinine Creat Clearance w eGFR Random Glucose Calcium Total Bilirubin AST ALT Alkaline Phosphatase Total Protein Albumin Urine Color Urine Appearance Urine pH Ur Specific [place] Urine Protein Urine Glucose (UA) Urine Ketones Urine Blood Urine Nitrite Urine Bilirubin Urine Urobilinogen Ur Leukocyte Esterase RPR Titer Nonreactive Labs reviewed: wbc 11.9 (ordered for repeated cbc but patient refused) Assessment: 05/03/18 16:16 Withdrawal symptoms Leukocytosis noted (patient refused repeated CBC) Plan: Continue detox Encouraged PO water intake Leukocytosis: asymptomatic, reordered for repeated CBC in AM
[2018-05-03] MEDS: LOPERAMIDE HCL 2 MG CAPSULE PO PRN (18:07)
[2018-05-03] MEDS: CYCLOBENZAPRINE HCL 10 MG TABLET (FP) PO PRN (22:08)
[2018-05-03] MEDS: THIAMINE HCL 100 MG TABLET (FP) PO SCH (22:08)
[2018-05-03] MEDS: MAG HYDROX/AL HYDROX/SIMETH 30 ML UNIT-DOSE CUP PO PRN (23:59)
--- NOTE | 2018-05-04 09:33 | PN ---
BHS Progress Note (SOAP) Subjective: feeling better no body aches no gi distress social with peers in day room Objective: 05/04/18 09:32 Vital Signs Temperature 98.0 F 05/04/18 06:27 Pulse Rate 57 L 05/04/18 06:27 Respiratory Rate 19 05/04/18 06:27 Blood Pressure 101/67 05/04/18 06:27 O2 Sat by Pulse Oximetry (%) Laboratory Last Values WBC 11.9 K/mm3 (4.0-10.0) H 05/01/18 05:35 RBC 4.74 M/mm3 (4.00-5.60) 05/01/18 05:35 Hgb 11.0 GM/dL (11.7-16.9) L 05/01/18 05:35 Hct 34.3 % (35.4-49) L 05/01/18 05:35 MCV 72.3 fl (80-96) L 05/01/18 05:35 MCH 23.1 pg (25.7-33.7) L 05/01/18 05:35 MCHC 32.0 g/dl (32.0-35.9) 05/01/18 05:35 RDW 16.8 % (11.9-15.9) H 05/01/18 05:35 Plt Count 278 K/MM3 (134-434) 05/01/18 05:35 MPV 7.9 fl (7.5-11.1) 05/01/18 05:35 Sodium 137 mmol/L (136-145) 05/01/18 05:35 Potassium 4.1 mmol/L (3.5-5.1) 05/01/18 05:35 Chloride 100 mmol/L (98-107) 05/01/18 05:35 Carbon Dioxide 28 mmol/L (21-32) 05/01/18 05:35 Anion Gap 9 MMOL/L (8-16) 05/01/18 05:35 BUN 23 mg/dL (7-18) H 05/01/18 05:35 Creatinine 1.2 mg/dL (0.55-1.3) 05/01/18 05:35 Creat Clearance w eGFR > 60 (>60) 05/01/18 05:35 Random Glucose 119 mg/dL (74-106) H 05/01/18 05:35 Calcium 8.6 mg/dL (8.5-10.1) 05/01/18 05:35 Total Bilirubin 0.3 mg/dL (0.2-1) 05/01/18 05:35 AST 46 U/L (15-37) H 05/01/18 05:35 ALT 47 U/L (13-61) 05/01/18 05:35 Alkaline Phosphatase 66 U/L (45-117) 05/01/18 05:35 Total Protein 7.6 g/dl (6.4-8.2) 05/01/18 05:35 Albumin 3.3 g/dl (3.4-5.0) L 05/01/18 05:35 Urine Color Yellow 04/30/18 22:30 Urine Appearance Turbid 04/30/18 22:30 Urine pH 5.0 (5.0-8.0) 04/30/18 22:30 Ur Specific [place] 1.025 (1.010-1.035) 04/30/18 22:30 Urine Protein Negative (NEGATIVE) 04/30/18 22:30 Urine Glucose (UA) Negative (NEGATIVE) 04/30/18 22:30 Urine Ketones Negative (NEGATIVE) 04/30/18 22:30 Urine Blood Negative (NEGATIVE) 04/30/18 22:30 Urine Nitrite Negative (NEGATIVE) 04/30/18 22:30 Urine Bilirubin Negative (<2.0 mg/dL) 04/30/18 22:30 Urine Urobilinogen Negative mg/dL (0.2-1.0) 04/30/18 22:30 Ur Leukocyte Esterase Negative (NEGATIVE) 04/30/18 22:30 RPR Titer Nonreactive (NONREACTIVE) 05/01/18 05:35 lab noted Assessment: 05/04/18 09:32 mild withdrawal sx Plan: medically sueprvised detox
[2018-05-04 09:59] VITALS: BP 105/67; PULSE 88; TEMP 96.4
[2018-05-04] MEDS ORDERED: METHADONE HCL 10 MG TABLET (FOR DETOX USE ONLY) PO ONE (10:00)
[2018-05-04] MEDS: NICOTINE 21 MG/24 HOURS TOPICAL PATCH TD SCH (10:15)
[2018-05-04] MEDS: PRENATAL VITAMINS W/ FOLIC ACID TABLET (FP) PO SCH (10:15)
[2018-05-04] MEDS: RANITIDINE HCL 150 MG TABLET (FP) PO SCH (10:15)
[2018-05-04] MEDS: cloNIDine HCL 0.1 MG TABLET PO SCH (10:16)
[2018-05-04 10:53] LABS: BASO % 0.1 % (0-2.0); EOS % 4.6 % (0-4.5); HEMATOCRIT 36.5 % (35.4-49); LYMPH % 22.4 % (8-40); MEAN CELL VOLUME 73.1 fl (80-96); MEAN PLT VOLUME 7.4 fl (7.5-11.1); MONO % 8.9 % (3.8-10.2); PLATELET COUNT 259 K/MM3 (134-434); RDW 16.8 % (11.9-15.9); WHITE BLOOD COUNT 8.1 K/mm3 (4.0-10.0)
--- NOTE | 2018-05-04 13:30 | DS ---
[facility] Detox Discharge Summary Admission Date: 04/30/18 Discharge Date: 05/04/18 - History Present History: Opioid Dependence Additional Comments: 52 years old male admitted on 04/30/18 for opiate withdrawal sx insists to leave the detox unit after lunch aftercare [place] Pertinent Past History: patient insists to leave the facility refuses to consider [facility] patient refuses to wait face to face with the loan underwriter the loan underwriter has not seen nor evaluate the patient before the patient leaves the the facility - Physical Exam Results Vital Signs: Vital Signs Temperature 96.4 F L 05/04/18 09:59 Pulse Rate 88 05/04/18 09:59 Respiratory Rate 18 05/04/18 09:59 Blood Pressure 105/67 05/04/18 09:59 O2 Sat by Pulse Oximetry (%) Pertinent Admission Physical Exam Findings: opiate withdrawal sx Vital Signs Temperature 96.4 F L 05/04/18 09:59 Pulse Rate 88 05/04/18 09:59 Respiratory Rate 18 05/04/18 09:59 Blood Pressure 105/67 05/04/18 09:59 O2 Sat by Pulse Oximetry (%) Laboratory Last Values WBC 8.1 K/mm3 (4.0-10.0) 05/04/18 07:30 RBC 5.00 M/mm3 (4.00-5.60) 05/04/18 07:30 Hgb 11.0 GM/dL (11.7-16.9) L 05/04/18 07:30 Hct 36.5 % (35.4-49) 05/04/18 07:30 MCV 73.1 fl (80-96) L 05/04/18 07:30 MCH 22.0 pg (25.7-33.7) L 05/04/18 07:30 MCHC 30.0 g/dl (32.0-35.9) L 05/04/18 07:30 RDW 16.8 % (11.9-15.9) H 05/04/18 07:30 Plt Count 259 K/MM3 (134-434) 05/04/18 07:30 MPV 7.4 fl (7.5-11.1) L 05/04/18 07:30 Absolute Neuts (auto) 5.2 K/mm3 (1.5-8.0) 05/04/18 07:30 Neutrophils % 64.0 % (42.8-82.8) 05/04/18 07:30 Lymphocytes % 22.4 % (8-40) D 05/04/18 07:30 Monocytes % 8.9 % (3.8-10.2) 05/04/18 07:30 Eosinophils % 4.6 % (0-4.5) H 05/04/18 07:30 Basophils % 0.1 % (0-2.0) 05/04/18 07:30 Nucleated RBC % 0 % (0-0) 05/04/18 07:30 Sodium 137 mmol/L (136-145) 05/01/18 05:35 Potassium 4.1 mmol/L (3.5-5.1) 05/01/18 05:35 Chloride 100 mmol/L (98-107) 05/01/18 05:35 Carbon Dioxide 28 mmol/L (21-32) 05/01/18 05:35 Anion Gap 9 MMOL/L (8-16) 05/01/18 05:35 BUN 23 mg/dL (7-18) H 05/01/18 05:35 Creatinine 1.2 mg/dL (0.55-1.3) 05/01/18 05:35 Creat Clearance w eGFR > 60 (>60) 05/01/18 05:35 Random Glucose 119 mg/dL (74-106) H 05/01/18 05:35 Calcium 8.6 mg/dL (8.5-10.1) 05/01/18 05:35 Total Bilirubin 0.3 mg/dL (0.2-1) 05/01/18 05:35 AST 46 U/L (15-37) H 05/01/18 05:35 ALT 47 U/L (13-61) 05/01/18 05:35 Alkaline Phosphatase 66 U/L (45-117) 05/01/18 05:35 Total Protein 7.6 g/dl (6.4-8.2) 05/01/18 05:35 Albumin 3.3 g/dl (3.4-5.0) L 05/01/18 05:35 Urine Color Yellow 04/30/18 22:30 Urine Appearance Turbid 04/30/18 22:30 Urine pH 5.0 (5.0-8.0) 04/30/18 22:30 Ur Specific [place] 1.025 (1.010-1.035) 04/30/18 22:30 Urine Protein Negative (NEGATIVE) 04/30/18 22:30 Urine Glucose (UA) Negative (NEGATIVE) 04/30/18 22:30 Urine Ketones Negative (NEGATIVE) 04/30/18 22:30 Urine Blood Negative (NEGATIVE) 04/30/18 22:30 Urine Nitrite Negative (NEGATIVE) 04/30/18 22:30 Urine Bilirubin Negative (<2.0 mg/dL) 04/30/18 22:30 Urine Urobilinogen Negative mg/dL (0.2-1.0) 04/30/18 22:30 Ur Leukocyte Esterase Negative (NEGATIVE) 04/30/18 22:30 RPR Titer Nonreactive (NONREACTIVE) 05/01/18 05:35 lab noted - Treatment Hospital Course: Detox Protocol Followed, Responded well Patient has Accepted a Rehab Referral to: [facility] - Medication Discharge Medications: Ambulatory Orders Albuterol Sulfate Inhaler - [Ventolin HFA Inhaler -] 2 puff IH Q4H PRN #1 inhaler 05/04/18 - Diagnosis (1) Opioid dependence with withdrawal Status: Acute (2) Weight loss Status: Acute (3) Asthma Status: Chronic Qualifiers: Asthma severity: mild Asthma persistence: intermittent Asthma complication type: with status asthmaticus Qualified Code(s): J45.22 - Mild intermittent asthma with status asthmaticus (4) Essential hypertension Status: Chronic (5) GERD (gastroesophageal reflux disease) Status: Chronic Qualifiers: (6) Hepatitis C Status: Chronic Qualifiers: Viral hepatitis chronicity: unspecified (7) Nicotine dependence Status: Acute Qualifiers: Nicotine product type: cigarettes Substance use status: in withdrawal Qualified Code(s): F17.213 - Nicotine dependence, cigarettes, with withdrawal (8) PPD positive Status: Resolved (9) Drug-induced mood disorder Status: Suspected - AMA Did Patient Leave Against Medical Advice: Yes
[2018-05-04 15:08] LABS: OVALOCYTE 1+; TEAR DROP CELLS 1+
[2018-05-05] MEDS ORDERED: METHADONE HCL 5 MG TABLET (FOR DETOX USE ONLY) PO ONE (06:00)
== END 2018-05-04 12:44 | disposition left against medical advice (07) | DRG 770 ==
LOC: YASAS 08:49 → Y3N 10:01
PROVIDERS: ADMIT Neuromusculoskeletal Medicine & OMM; ATTEND Neuromusculoskeletal Medicine & OMM
PROC: HZ2ZZZZ Detoxification Services for Substance Abuse Treatment (ICD-10-PCS; principal; 2018-04-30)
PROC: HZ2ZZZZ Detoxification Services for Substance Abuse Treatment (ICD-10-PCS; 2018-04-30)
DX: F11.23 Opioid dependence with withdrawal (principal); F14.20 Cocaine dependence, uncomplicated; F17.213 Nicotine dependence, cigarettes, with withdrawal; F19.24 Other psychoactive substance dependence with psychoactive substance-induced mood disorder; F32.9 Major depressive disorder, single episode, unspecified; I10 Essential (primary) hypertension; J45.22 Mild intermittent asthma with status asthmaticus; K21.9 Gastro-esophageal reflux disease without esophagitis; B18.2 Chronic viral hepatitis C; R76.11 Nonspecific reaction to tuberculin skin test without active tuberculosis; R79.89 Other specified abnormal findings of blood chemistry; D64.9 Anemia, unspecified; D72.829 Elevated white blood cell count, unspecified; G47.00 Insomnia, unspecified; R11.2 Nausea with vomiting, unspecified; M79.10 Myalgia, unspecified site; Z91.14 Patient's other noncompliance with medication regimen; Z91.5 Personal history of self-harm
CPT/HCPCS: 36415; 80053; 81003; 85025; 85027; 86593; J0735